=== PATIENT | female | born 1980 | race Caucasian/White ===

== ENCOUNTER → 2020-07-09 16:01 | Outpatient (CLI) | payer OTHER, SELFPAY ==
--- NOTE | ~2020-07-09 | XR_ITS ---
XR lumbar spine 2-3V DATE: 07/09/2020 16:22 INDICATION: Low back pain TECHNIQUE: Standing AP, lateral and coned lateral lumbosacral views COMPARISON: None FINDINGS: There is mild dextroscoliosis of the lumbar spine. No fracture or bone destruction or spondylolisthesis. The included lower thoracic and lumbar pedicles are intact. There is moderate degenerative disc disease at L1-2; the remaining lumbar and lumbosacral interspaces are well preserved. The sacroiliac joints are unremarkable. IMPRESSION: Mild dextro scoliosis Moderate degenerative disc disease at L1-2 Reviewed, dictated and finalized at location A.
== END ==
PROVIDERS: PCP Internal Medicine; Visit Provider Internal Medicine
DX: M51.36 Other intervertebral disc degeneration, lumbar region (principal)
CPT/HCPCS: 72100

== ENCOUNTER → 2020-10-15 14:25 | Outpatient (CLI) | payer OTHER, SELFPAY ==
--- NOTE | ~2020-10-15 | MR_ITS ---
EXAMINATION: MR lumbar spine wo con DATE: 10/15/2020 15:02 INDICATION: Low back pain. TECHNIQUE: Magnetic resonance imaging (MRI) of the lumbar spine was performed without intravenous con trast. Sequences included sagittal T2-weighted FSE, sagittal T2-weighted FS FSE, sagittal T1-weighted FSE, and axial T2-weighted FSE. COMPARISON: Lumbar spine radiographs 07/09/2020 FINDINGS: There is 6 degrees dextrocurvature of lumbar spine. There is mild chronic anterior wedging of L1 vertebral body. There are Schmorl's nodes from L1-L2 through L3-L4. There is a hemangioma in L1 vertebral body. There is mildly decreased disc height at L1-L2. The distal spinal cord signal intens ity is normal. The conus medullaris is at L1. The following disc levels are specifically discussed: L1-L2: There is a right central extrusion. There is no facet joint osteoarthritis. There is no neural foraminal stenosis. There is mild central canal stenosis. L2-L3: The disc does not extend beyond the endplate margin. There is mild right facet joint osteoarth ritis. There is no neural foraminal stenosis. There is no central canal stenosis. L3-L4: The disc does not extend beyond the endplate margin. There is mild right facet joint osteoarth ritis. There is no neural foraminal stenosis. There is no central canal stenosis. L4-L5: The disc is mildly bulging. There is no facet joint osteoarthritis. There is mild left neural foraminal stenosis. There is mild central canal stenosis. L5-S1: The disc is bulging and has an annular fissure. There is mild right facet joint osteoarthritis . There is mild right neural foraminal stenosis. There is mild central canal stenosis. IMPRESSION: 1. Mild lumbar spondylosis. Reviewed, dictated and finalized at location B. WORK CARPENTER IMPRESSION: 1. Mild lumbar spondylosis.
== END ==
PROVIDERS: PCP Internal Medicine; Visit Provider Internal Medicine
DX: M47.896 Other spondylosis, lumbar region (principal)
CPT/HCPCS: 72148

== ENCOUNTER → 2021-10-22 08:49 | Outpatient (CLI) | payer OTHER, SELFPAY ==
--- NOTE | ~2021-10-22 | CT_ITS ---
EXAMINATION: CT soft tissue neck w con DATE: 10/22/2021 09:34 INDICATION: Left neck lump. TECHNIQUE: Computed tomography (CT) of the neck was performed with 75 mL Omnipaque-350 intravenous co ntrast. Automated exposure control and iterative reconstruction technique were employed. The dose-casi gth product was 385.66 mGy-cm. COMPARISON: None FINDINGS: There is mild scarring at the lung apices. There are no pathologically enlarged lymph nodes . There is no visible plaque in the proximal internal carotid arteries. The paranasal sinuses are celestina ar. The mastoid air cells are normal. There is mild cervical spondylosis. IMPRESSION: 1. No abnormal mass or lymphadenopathy. Reviewed, dictated and finalized at location A. NICAL PRODUCT MANAGER
== END ==
PROVIDERS: Visit Provider Internal Medicine
DX: R22.1 Localized swelling, mass and lump, neck (principal)
CPT/HCPCS: 70491; Q9967

== ENCOUNTER → 2023-03-03 14:44 | Outpatient (CLI) | payer OTHER, SELFPAY ==
--- NOTE | ~2023-03-03 | MM_ITS ---
EXAMINATION: MM screening saeed BI w aurelia HISTORY: Screening mammogram TECHNIQUE: Craniocaudal and mediolateral oblique 3-D tomosynthesis images were obtained and synthetic 2-D images were generated. Bilateral rotated lateral craniocaudal views. CAD analysis was submitted and interpreted. COMPARISON: No prior mammogram is available for comparison at this institution. BREAST PARENCHYMAL COMPOSITION: There are scattered areas of fibroglandular density. FINDINGS: There is no evidence of suspicious mass, calcification, or architectural distortion to sugg est malignancy in either breast. There has been no suspicious interval change. IMPRESSION: 1. No mammographic evidence of malignancy. 2. Recommend routine screening mammography in one year. BI-RADS Category 1: Negative Reviewed, dictated and finalized at location A.
== END ==
PROVIDERS: PCP Obstetrics & Gynecology; Visit Provider Obstetrics & Gynecology
DX: Z12.31 Encounter for screening mammogram for malignant neoplasm of breast (principal)
CPT/HCPCS: 77063; 77067

== ENCOUNTER 2024-04-10 15:07 | Outpatient (CLI) | payer OTHER, SELFPAY ==
--- NOTE | ~2024-04-10 | MM_ITS ---
EXAMINATION: MM screening saeed BI w aurelia HISTORY: Screening TECHNIQUE: Craniocaudal and mediolateral oblique 3-D tomosynthesis images were obtained and synthetic 2-D images were generated. CAD analysis was submitted and interpreted. COMPARISON: 03/03/2023 BREAST PARENCHYMAL COMPOSITION: Not dense: There are scattered areas of fibroglandular density. FINDINGS: There is no evidence of suspicious mass, calcification, or architectural distortion to sugg est malignancy in either breast. There has been no suspicious interval change. IMPRESSION: 1. No mammographic evidence of malignancy. 2. Recommend routine screening mammography in one year. BI-RADS Category 1: Negative Reviewed, dictated and finalized at location B.
== END 2024-04-10 15:08 ==
LOC: MICIMG 15:07
PROVIDERS: PCP Obstetrics & Gynecology; Visit Provider Obstetrics & Gynecology
DX: Z12.31 Encounter for screening mammogram for malignant neoplasm of breast (principal)
CPT/HCPCS: 77063; 77067

== ENCOUNTER 2024-04-21 14:37 | Emergency (ER) | payer OTHER, SELFPAY ==
--- NOTE | 2024-04-21 14:40 | ED.URI ---
HPI - URI/Sore Throat General Chief Complaint: Upper Respiratory Infection Stated Complaint: Strep Test Time Seen by Provider: 04/21/24 14:39 Source: patient Mode of arrival: ambulatory Limitations: no limitations History of Present Illness HPI Narrative: Yarely is a 43-year-old female patient presenting to the clinic today with complaints of a scratchy dry itchy throat that started yesterday. Feels as though there is mucus in the back of her throat as she is having to clear her throat. States that both her kids just got over strep so she is concerned that she may have strep and would like testing today. Denies any fever, headache, or body aches, or abdominal discomfort MD elicited complaint: sore throat and nasal congestion Related Data Home Medications Medication Instructions Recorded Confirmed buspirone 15 mg tablet mg 04/21/24 fluoxetine 20 mg tablet mg 04/21/24 meloxicam 15 mg tablet mg 04/21/24 Allergies Allergy/AdvReac Type Severity Reaction Status Date / Time Penicillins Allergy Unknown HIVES Verified 03/09/18 12:14 HYDROCODONE BIT Allergy Unknown VOMITING Uncoded 03/09/18 12:14 Review of Systems Review of Systems: Pertinent positives per HPI. Patient denies any fever, chills, rash, headache, visual changes, dizziness, cough, shortness of breath, chest pain, palpitations, nausea, vomiting, diarrhea, constipation, abdominal pain, or any urinary issues. PMFSH Comments At the time of my signature, I reviewed and agree with the nursing past medical, surgical, social, and family history. There is no relevant family history pertinent to the patient complaint. Exam Narrative: General: Well-developed, well nourished, in no apparent distress Head: Normocephalic, atraumatic Eyes: Pupils equally round and reactive to light bilaterally, EOM intact, sclera and conjunctive clear, no discharge, lids normal Ears: TMs intact and clear, ear canals clear, no drainage, grossly hearing normal. Nose: Nares patent, clear discharge, no inflammation, no sinus tenderness. Mouth: Oral pharynx mildly red without lesions or masses, good dentition, MMM. Neck: Supple, trachea midline, no enlargement of anterior or posterior cervical nodes, no thyroid masses or goiter palpable. Cardio: Regular rate and rhythm, s1 and s2 normal, no murmur appreciated. Resp: Clear to auscultation bilaterally, no rhonchi, rales, wheezing or rubs Course Course Emergency Course: Portions of this record may have been created with voice recognition software. Level of Care: Express Care Visit Vital Signs Vital signs: Vital signs reviewed MDM - URI/Sore Throat MDM Narrative Medical decision making narrative: At the time of visit patient is resting comfortably on the exam table. Patient appears to be nontoxic. Labs: Strep test was negative in the clinic today. We will send for culture. Plan: I suspect patient has acute viral pharyngitis. We will send strep for culture. Supportive measures were discussed with the patient and they voiced understanding discharge instructions and agrees to treatment plan. Return precautions reviewed Differential Diagnosis Differential diagnosis: Likely upper respiratory infection, otitis media, sinusitis, viral infection, bronchitis, influenza, pharyngitis and other (COVID) Discharge Plan Discharge Clinical Impression: Pharyngitis Patient Disposition: Home, Self-Care Condition: Stable Instructions: Antibiotic Form, Pharyngitis (ED) Additional Instructions: Strep test was negative in the clinic today. We will send strep for culture if this comes back positive we will contact you in place you on antibiotics at that time. Increase fluids and stay well hydrated Tylenol/motrin for pain/fever Flonase and OTC antihistamines as directed Vicks vapor rub to open sinuses Sinus rinses for congestion Cepacol spray, cough drops, throat lozenges, warm tea with honey/lemon, gargle salt w
[2024-04-21 14:48] VITALS: BP 107/85; PULSE 99; RESP 16; TEMP 37.2; O2SAT 99
== END 2024-04-21 14:59 | disposition home or self-care (01) ==
PROVIDERS: Emergency Provider Nurse Practitioner Family; PCP Internal Medicine
DX: J02.9 Acute pharyngitis, unspecified (principal)
CPT/HCPCS: 87081; 87880; 99203; G0463

== ENCOUNTER 2024-12-25 14:44 | Emergency (ER) | payer OTHER, SELFPAY ==
--- NOTE | ~2024-12-25 | XR_ITS ---
EXAM: XR abdomen/kub 1V DATE: 12/25/2024 15:56 HISTORY: constipation, rectal stool ball . COMPARISON: None available. FINDINGS: Clear lung bases. The rectum is dilated to 7.9 cm by formed stool. Otherwise normal bowel gas pattern. No organomegaly. No abnormal abdominal calcification. IUD projecting over the pelvis. Re gional bones and soft tissues normal for age. IMPRESSION: Possible fecal impaction. Reviewed, dictated and finalized at location K. OP ADMINISTRATOR IMPRESSION: Possible fecal impaction.
[2024-12-25 14:47] VITALS: BP 119/80; PULSE 76; RESP 14; TEMP 36.4; O2SAT 99
--- NOTE | 2024-12-25 15:35 | ED_ITS ---
HPI - General Adult General Chief complaint: Unspecified <Rhona Rubio PA-C - Last Filed: 12/25/24 15:43> Stated complaint: think i have an impaction <Rhona Rubio PA-C - Last Filed: 12/25/24 15:43> Time Seen by Provider: 12/25/24 15:35 <Rhona Rubio PA-C - Last Filed: 12/25/24 15:43> Focused HPI: Patient is a 44 y/o female who presents to the ED with c/o constipation. Patient reports she has not had a bowel movement in the past couple of days. Has felt the urge to go and pressure in her rectum, but has been unable to pass any stool. Is on Mounjaro but denies frequent issues with constipation. Has tried miralax, warm water enema without improvement. Feels like there is a large stool ball present, but too big to push out. C/o pain to rectum. Denies abdominal pain, N/V, fevers, rectal bleeding. Has colonoscopy scheduled for February. GENERAL: Well-appearing, well-nourished, and in no acute distress. HEAD: Normocephalic, atraumatic. CHEST: Clear to auscultation. ?No respiratory distress. HEART: Regular rate and rhythm.? ABD: No significant tenderness throughout abdomen. NEURO: ?Alert and oriented x3. Patient screened in triage and initial orders placed.? ?Additional care and disposition to be based upon?diagnostic testing and treatment. <Rhona Rubio PA-C - Last Filed: 12/25/24 15:43> Source: patient <Rhona Rubio PA-C - Last Filed: 12/25/24 15:43> Mode of arrival: ambulatory <Rhona Rubio PA-C - Last Filed: 12/25/24 15:43> Limitations: no limitations <DORETHA Quinonez Last Filed: 12/25/24 15:43> History of Present Illness HPI narrative: I agree with the above HPI <Sae Dave MD - Last Filed: 12/25/24 22:07> Related Data Home medications: Home Medications ?Medication ?Instructions ?Recorded ?Confirmed ?Last Taken ?Type buspirone 15 mg tablet mg 04/21/24 Unknown History fluoxetine 20 mg tablet mg 04/21/24 Unknown History meloxicam 15 mg tablet mg 04/21/24 Unknown History <Rhona Rubio PA-C - Last Filed: 12/25/24 15:43> Allergies/adverse reactions: Allergies Allergy/AdvReac Type Severity Reaction Status Date / Time Penicillins Allergy Unknown HIVES Verified 12/25/24 14:52 HYDROCODONE BIT Allergy Unknown VOMITING Uncoded 12/25/24 14:52 <Rhona Rubio PA-C - Last Filed: 12/25/24 15:43> Review of Systems Review of Systems: All systems reviewed & are unremarkable except as noted in HPI and below <Sae Dave MD - Last Filed: 12/25/24 22:07> Exam Narrative: APPEARANCE: Well appearing, no pain, no distress, well-nourished. HEAD: normocephalic, atraumatic. EYES: PERRLA/EOMI, conjunctivae clear. NOSE: Normal no drainage EARS:TMS clear with good light reflex. THROAT: Pharynx clear, no exudate. NECK: Supple. No adenopathy, no masses. RESPIRATORY: Airway patent, respirations nonlabored. Clear to auscultation bilaterally, no rales, rhonchi, wheezing. CARDIOVASCULAR: Regular rate and rhythm without murmurs rubs or gallops. ABDOMINAL: Soft, nontender, nondistended, normal bowel sounds MUSCULOSKELETAL: Moves all extremities. Strength/ROM intact, No edema, No calf tenderness. NEURO: Alert. Cranial nerves II through XII intact. SKIN: Warm, dry. Normal Color <Sae Dave MD - Last Filed: 12/25/24 22:07> Course Vital Signs Vital signs: Vital Signs Temperature 97.5 F L 12/25/24 14:47 Pulse Rate 76 12/25/24 14:47 Respiratory Rate 14 12/25/24 14:47 Blood Pressure 119/80 12/25/24 14:47 Pulse Oximetry 99 12/25/24 14:47 Oxygen Delivery Room Air 12/25/24 14:47 Temperature 97.5 F L 12/25/24 14:47 Pulse Rate 89 12/25/24 20:19 Respiratory Rate 16 12/25/24 20:19 Blood Pressure 108/83 12/25/24 20:19 Pulse Oximetry 100 12/25/24 20:19 Oxygen Delivery Room Air 12/25/24 14:47 <Rhona Rubio PA-C - Last Filed: 12/25/24 15:43> Vital Signs Temperature 97.5 F L 12/25/24 14:47 Pulse Rate 76 12/25/24 14:47 Respiratory Rate 14 12/25/24 14:47 Blood Pressure 119/80 12/25/24 14:47 Pulse Oximetry 99 12/25/24 14:47 Oxygen Delivery Room Air 12/25/24 14:47 Temperature 97.5 F L 12/25/24 14:47 Pulse Rate 89 12/25/24 20:19 Respiratory Rate 16 12/25/24 20:19 Blood Pressure 108/83 12/25/24 20:19 Pulse Oximetry 100 12/25/24 20:19 Oxygen Delivery Room Air 12/25/24 14:47 <Sae Dave MD - Last Filed: 12/25/24 22:07> Procedures Rectal Disimpaction Rectal Disimpaction #1: Rectal Disimpaction Date: 12/25/24 <Sae Dave MD - Last Filed: 12/25/24 22:07> Rectal Disimpaction Time: 22:03 <Sae Dave MD - Last Filed: 12/25/24 22:07> Time out performed rectal disimpaction: Yes <Sae Dave MD - Last Filed: 12/25/24 22:07> Indication: fecal impaction <Sae Dave MD - Last Filed: 12/25/24 22:07> Procedural Sedation: No <Sae Dave MD - Last Filed: 12/25/24 22:07> Sedation/Analgesia: none <Sae Dave MD - Last Filed: 12/25/24 22:07> Technique: manual disimpaction with gloved finger <Sae Dave MD - Last Filed: 12/25/24 22:07> Result: unable to disimpact <Sae Dave MD - Last Filed: 12/25/24 22:07> Patient Tolerated Procedure: well and no complications <Sae Dave MD - Last Filed: 12/25/24 22:07> Complications: none <Sae Dave MD - Last Filed: 12/25/24 22:07> Medical Decision Making MDM Narrative Medical decision making narrative: MSE by SHARON in triage. <Rhona Rubio PA-C - Last Filed: 12/25/24 15:43> MSE by SHARON in triage. 44-year-old female present to the emergency department for evaluation for constipation has been going on for the last few days. Patient had been trying some MiraLax and attempted a glycerin suppository and enema without success. Patient was willing to attempt digital disimpaction with no significant results. Patient had an enema and did have some small results. Patient is still having some rectal pressure. Patient was willing to have a 2nd attempt at rectal disimpaction but the stool is too high and the rectum. Patient was advised to increase her MiraLax intake increase her glycerin suppository use and to have close follow-up with her primary care physician. All questions concerns were addressed patient was comfortable the plan was discharge and close follow-up. Patient was educated on reasons to return to the emergency department. <Sae Dave MD - Last Filed: 12/25/24 22:07> Differential Diagnosis Differential Diagnosis: Constipation, fecal impaction, constipation <Sae Dave MD - Last Filed: 12/25/24 22:07> Vital Signs Vital Signs: Vital Signs Temperature 97.5 F L 12/25/24 14:47 Pulse Rate 76 12/25/24 14:47 Respiratory Rate 14 12/25/24 14:47 Blood Pressure 119/80 12/25/24 14:47 Pulse Oximetry 99 12/25/24 14:47 Oxygen Delivery Room Air 12/25/24 14:47 Temperature 97.5 F L 12/25/24 14:47 Pulse Rate 89 12/25/24 20:19 Respiratory Rate 16 12/25/24 20:19 Blood Pressure 108/83 12/25/24 20:19 Pulse Oximetry 100 12/25/24 20:19 Oxygen Delivery Room Air 12/25/24 14:47 <Rhona Rubio PA-C - Last Filed: 12/25/24 15:43> Vital Signs Temperature 97.5 F L 12/25/24 14:47 Pulse Rate 76 12/25/24 14:47 Respiratory Rate 14 12/25/24 14:47 Blood Pressure 119/80 12/25/24 14:47 Pulse Oximetry 99 12/25/24 14:47 Oxygen Delivery Room Air 12/25/24 14:47 Temperature 97.5 F L 12/25/24 14:47 Pulse Rate 89 12/25/24 20:19 Respiratory Rate 16 12/25/24 20:19 Blood Pressure 108/83 12/25/24 20:19 Pulse Oximetry 100 12/25/24 20:19 Oxygen Delivery Room Air 12/25/24 14:47 <Sae Dave MD - Last Filed: 12/25/24 22:07> Imaging Data Radiologist's impression: Impressions Abdomen X-Ray 12/25/24 15:59 IMPRESSION: Possible fecal impaction. <Sae Dave MD - Last Filed: 12/25/24 22:07> Discharge Plan Discharge Clinical Impression: Fecal impaction of colon, Constipation <Rhona Rubio PA-C - Last Filed: 12/25/24 15:43> Patient Disposition: Home, Self-Care <Rhona Rubio PA-C - Last Filed: 12/25/24 15:43> Condition: Stable <Rhona Rubio PA-C - Last Filed: 12/25/24 15:43> Instructions: Antibiotic Form, Constipation (DC) <Rhona Rubio PA-C - Last Filed: 12/25/24 15:43> Additional Instructions: Glycerin suppositories as directed. Increase your MiraLax dosing and increased water intake. Have close follow-up with your primary care physician. If you have worsening symptoms then please call or return to the emergency department. <Rhona Rubio PA-C - Last Filed: 12/25/24 15:43> Patient Language: Macedonian <Rhona Rubio PA-C - Last Filed: 12/25/24 15:43> Prescriptions: No Action meloxicam 15 mg tablet fluoxetine 20 mg tablet buspirone 15 mg tablet <Rhona Rubio PA-C - Last Filed: 12/25/24 15:43> Follow-up/Referrals: Erinn,Robinson Zuleta MD [Primary Care Provider] - <Rhona Rubio PA-C - Last Filed: 12/25/24 15:43> Stand Alone Forms: Work/School Release IP <Rhona Rubio PA-C - Last Filed: 12/25/24 15:43>
--- OUTSIDE RECORDS SUMMARY | 2024-12-25 17:29 | XMS_ITS | Clinical Summary ---
Author Organization [facility] Address [address] [place] [address] Care Team Providers Care Sewer Connector Name Role Phone Robinson Plasencia MD Primary Care Provider [phone] Allergies Active Allergy Reactions Criticality Noted Date Comments Hydrocodone-Acetaminophen Nausea Only,Vomiting 10/16/2014 Penicillins Hives Medium 05/09/2007 Tape Itching 06/20/2020 Medications levonorgestrel (MIRENA) 20 MCG/24HR IUD 1 Intra Uterine Device by Intrauterine route once. Active Vit-Fe Fumarate-FA (CLASSIC ) 28-0.8 MG Tab Take 1 tablet by mouth daily. 06/09/20 21 Active Cholecalciferol (VITAMIN D) 125 MCG (5000 UT) CapIndications:Vit bridges D deficiency Take 1 capsule by mouth daily. 30 capsule 10/30/20 21 Active meloxicam (MOBIC) 15 MG tabletIndications: Primary osteoarthritis involving multiple joints Take 1 tablet (15 mg total) by mouth daily. 90 tablet 3 01/05/20 24 Active busPIRone (BUSPAR) 15 MG tabletIndications: Major depressive disorder, recurrent episode, moderate (CMS/HCC HHS/HCC) Take 1 tablet (15 mg total) by mouth 2 (two) times daily. 180 tablet 3 01/05/20 24 Active FLUoxetine (PROZAC) 20 MG tabletIndications: Major depressive disorder, recurrent episode, moderate (CMS/HCC HHS/HCC) Take 1 tablet (20 mg total) by mouth every morning. 90 tablet 3 01/05/20 24 Active meloxicam (MOBIC) 15 MG tabletIndications: Lumbar facet arthropathy Take 1 tablet (15 mg total) by mouth daily. 30 tablet 3 01/05/20 24 Active tirzepatide (ZEPBOUND) 2.5 MG/0.5ML injectionIndicatio ns:Obesity Inject 2.5 mg into the skin once a week. 2 mL 01/19/20 24 Active tretinoin (RETIN-A) 0.025 % creamIndications:A cne, unspecified acne type Apply topically nightly at bedtime. 45 g 3 03/13/20 24 Active ALPRAZolam (XANAX) 0.25 MG tabletIndications: Anxiety TAKE 1 TABLET BY MOUTH EVERY DAY NEEDED FOR SLEEP 30 tablet 05/30/20 24 Active cyclobenzaprine (FLEXERIL) 10 MG tabletIndications: Low back pain TAKE 1/2 TABLET(5 MG) BY MOUTH THREE TIMES DAILY NEEDED FOR MUSCLE SPASMS 30 tablet 10/11/20 24 Active Active Problems Problem Noted Date Diagnosed Date BRBPR (bright red blood per rectum) 05/26/2024 Diarrhea, unspecified type 05/26/2024 Family history of Crohn's disease 05/26/2024 Obstructive sleep apnea hypopnea, mild Vitamin D deficiency 10/30/2021 Palpitations 04/02/2021 Lumbar facet arthropathy 12/16/2020 Major depressive disorder, r ecurrent episode, moderate ([facility]) 11/18/2020 Melanoma of buttock ([facility]) 05/30/2020 Overview (09/18/2020): Dr. Reyna. Distinctive dermatology Anxiety 10/16/2014 Encounters Date Type Department Care Team Description 12/11/2024 MyChart Message Enc [facility] - [address] [place] [address] Lynn Scott NP Gallbladder 11/30/2024 MyChart Message Enc [facility] Medical [facility] Family & Internal Medicine - [address] [address] Robinson Plasencia MD Colonoscopy 11/30/2024 Orders Only [facility] - [facility] [address] [place] [phone] Brett Page MD 11/29/2024 MyChart Message Enc [facility] - [facility] [address] [place] [phone] Lynn Scott, AGUSTINA Colonoscopy from Last 3 Months Immunizations Name Administration Dates Next Due DT (Generic) 03/17/1988, 5,05/22/1983,1982 Dtp 01/12/1983 Fluzone 6 Months+ Quad (0.5 mL Prefilled Syringe) 08/11/2021,08/06/2018 Hib 1984 Influenza (Generic) 08/10/2016,07/17/2011,2009 Influenza Adult (Generic) 08/28/2023,,08/10/2016,2012 MMR 06/12/1993,12/09/1984 Opv 03/17/1988, 5,03/17/1983,1982 PFIZER COVID-19 (ORIGINAL FORMULATION, PURPLE CAP) mRNA, LNP-S, PF, 30 MCG/0.3 ML DOSE 10/24/2021 Td 06/12/1993 Td (Tenivac) preservative free 07/09/2006 Tdap (Boostrix) 02/06/2018 Family History Medical History Relation Comments Crohns Disease Brother Diabetes Brother Hyperlipidemia Brother Hypertension Father Prostate Cancer Maternal Grandfather Lung Cancer Maternal Grandmother Stroke Maternal Grandmother Irritable bowel syndrome Mother Diabetes Paternal Grandfather Heart Disease Paternal Grandfather Hypertension Paternal Grandfather Cancer Paternal Grandmother thyroid Diabetes Paternal Grandmother Relation Status Comments Brother Father Maternal Grandfather Maternal Grandmother Mother Paternal Grandfather Paternal Grandmother Social History Tobacco Use Types Packs/Day Years Used Date Smoking Tobacco: Never Smokeless Tobacco: Never Tobacco Cessation:Counseling Given: No Alcohol Use Standard Drinks/Week Comments Not Currently 0 (1 standard drink = 0.6 oz pur e alcohol) AUDIT-C Answer Date Recorded Frequency of Alcohol Consumption Never 04/12/2019 Average Number of Drinks Not on file 019 Frequency of Binge Drinking Not on file 03/2019 PHQ-2 Answer Date Recorded Patient Health Questionnaire-2 Score 0 05/26/2024 Education Answer Date Recorded What is the highest level of school you have completed or the highest degree you have received? 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; self-employed Not on file Not on file Not on file Last Filed Vital Signs Vital Sign Reading Time Taken Comments Blood Pressure 117/71 05/26/2024 10:00 AM CDT Pulse 80 05/26/2024 10:00 AM CDT Temperature 36.2 C (97.1 F) 05/26/2024 10:00 AM CDT Respiratory Rate 20 05/26/2024 10:00 AM CDT Oxygen Saturation 98% 05/26/2024 10:00 AM CDT Inhaled Oxygen Concentration - - Weight 86.2 kg (190 lb) 06/19/2024 3:03 PM CDT Height 177.8 cm (5' 10 ) 06/19/2024 3:03 PM CDT Body Mass Index 27.26 06/19/2024 3:03 PM CDT Plan of Treatment Upcoming Encounters Date Type Department Care Team (Latest Contact Info) Description 04/20/2025 8:32 AM CDT Hospital Encounter [facility] [address] [place] [address] Brett Page MD [address] [address] 04/20/2025 8:32 AM CDT - 04/20/2025 9:04 AM CDT Surgery [facility] [address] [place] [address] Brett Page MD [address] [place] [id number] COLONOSCOPY DIAGNOSTIC WITH/WITHOUT SPECIMEN BRUSH/WASH Scheduled Procedures Name Priority Associated Diagnoses Date/Ti me COLONOSCOPY DIAGNOSTIC WITH/WITHOUT SPECIMEN BRUSH/WASH Family history of Crohn's disease BRBPR (bright red blood per rectum) Diarrhea, unspecified type 04/20/2025 8:32 AM CDT Health Maintenance Due Date Last Done Comments Cervical Cancer Screening Pap Smear (Age 30 to 64) Every 3 Years 1982 Hepatitis B Vaccines (2 of 3 - 19+ 3-dose series) 01/16/2004 12/19/2003 Cervical Cancer Screening Pap with HPV Testing (Age 30 to 64) Every 5 Years 2012 Cervical Cancer Screening with HPV 2012 COVID-19 Vaccine ( season) 2024 10/24/2021, 11/21/2020, 11/11/2020 Influenza Adult (#1) 2024 08/28/2023, 08/11/2021, 08/15/2020, Additional history exists PHQ-2 (Physician [place]) 11/08/2024 05/26/2024 Annual Physical 01/05/2025 01/05/2024, 05/0 01/2023, 08/05/2022, Additional history exists Mammogram Screening 03/03/2025 03/03/2023 DTaP, Tdap and Td Vaccines (5 - Td or Tdap) 02/07/2028 02/06/2018, 05/21/2016, 08/20/2007, Additional history exists Meningococcal Vaccine Aged Out 12/14/2003 No mack tad eligible based on patient's age to complete this topic Hepatitis C Completed 05/30/2020 HPV Vaccines Aged Out No longer eligi ble based on patient's age to complete this topic Meningococcal B Vaccine Aged Out No l onger eligible based on patient's age to complete this topic Pneumococcal Vaccine: Pediatrics (0 to 5 Years) and At-Risk Patients (6 to 64 Years) Aged Out No longer eligible based on patient's age to complete this topic RSV Immunizations Under 20 Months Aged Out No longer eligible based on patient's age to complete this topic Procedures Procedure Name Priority Date/Time Associated Diagnosis Comments MAMMOGRAM GENERIC (SCAN ORDER) 03/03/2023 HEPATITIS C ANTIBODY Routine 05/30/2020 9:11 AM CDT from Last 3 Months or Most Recently Relevant to Health Maintenance Results * MAMMOGRAM GENERIC (03/03/2023) Anatomical Region Laterality Modality Other 03/03/2023 [facility] Scanned SCANNING Final Resu lt * HEPATITIS C ANTIBODY (05/30/2020 9:11 AM CDT) HEPATITIS C AB NON-REACT EH NON-REACT EH [facility] SIGNAL TO CUTOFF 0.01 <1.00 [facility] Comment: HCV antibody was non-reactive. There is no laboratory evidence of HCV infection. In most cases, no further action is required. However, if recent HCV exposure is suspected, a test for HCV RNA (test code 21047) is suggested. For additional information please refer to http://education.Cook123/faq/DIQ50p4 (This link is being provided for informational/ educational purposes only.) 05/30/2020 9:11 AM CDT 05/30/2020 9:14 AM CDT Narrative [facility] - 06/02/2020 3:05 PM CDT FASTING:YES FASTING: YES Resulting Agency Comment Performing Organization Information: Site ID: [id number] Name: [facility] Address: [address] [address] Director: Morgan Palafox D.O., MPH Robinson Plasencia MD LABORATORY Final Result [facility] [id number] [phone], from Last 3 Months or Most Recently Relevant to Health Maintenance Insurance Care Teams Sewer Connector Relationship Specialty Start Date End Date Robinson Plasencia MD [address] [place] [address] PCP - General 10/16/14
--- OUTSIDE RECORDS SUMMARY | 2024-12-25 17:30 | XMS_ITS | Encounter Summary ---
Author Organization [facility] Address [address] [place] [address] Care Team Providers Care Regional Driver Name Role Phone Robinson Plasencia MD Primary Care Provider [phone] Encounter Details Date Type Department Care Team (Late st Contact Info) Description 05/23/2020 Lab Requisition [facility] DermPath Lab [address] [place] [phone] Roseann Reyna DO [address] [facility] [address] [place] [address] Social History Tobacco Use Types Packs/Day Years Used Date Smoking Tobacco: Never Alcohol Use Standard Drinks/Week Comments Not Asked 0 (1 standard drink = 0.6 oz pur e alcohol) Sex and Gender Information Value Date Recorded Sex Assigned at Not on file Gender Identity Not on file Sexual Orientation Not on file documented as of this encounter Plan of Treatment Not on file documented as of this encounter Procedures Procedure Name Priority Date/Time Associated Diagnosis Comments DERMATOPATHOLOGY Routine 05/22/2020 12:0 0 AM CDT documented in this encounter Results * DERMATOPATHOLOGY (05/22/2020 12:00 AM CDT) Case Report Dermatopathology Report Case: [id number] Authorizing Provider: Roseann Reyna DO Collected: 05/22/2020 12:00 AM Ordering Location: [facility] DermPath Lab Received: 05/23/2020 09:17 AM Pathologist: Elliott Orellana MD Specimens: A) - Skin, scalp B) - Skin, left chest C) - Skin, left buttock 07/21/202 0 3:34 PM CDT DERMATOPATHOLOGY LABORATORY Final Diagnosis Specimen A. SKIN, scalp: FRAGMENTS OF EPIDERMIS (D23.9) HEALING SKIN CHANGES (L90.5) (see microscopic description) Specimen B. SKIN, left chest: LENTIGO SIMPLEX (L81.4) SUPERFICIAL AND DEEP PERIVASCULAR LYMPHOCYTIC INFILTRATE WITH EOSINOPHILS (T63.484A) (see microscopic description and comment) Specimen C. SKIN, left buttock: MALIGNANT MELANOMA,SUPERFICIA L SPREADING TYPE (C43.72) BRESLOW THICKNESS 0.3 MM, WAQAS LEVEL III PRESENT AT MARGIN (see microscopic description and synoptic report) 0 3:34 PM T DERMATOPATHOLOGY LABORATORY Clinical History A: Healing scar vs BCC B: LPLK vs bite R/O atypia C: Nevus R/O atypia 0 3:34 PM T DERMATOPATHOLOGY LABORATORY Gross Description Specimen A: Received is one formalin filled container labeled with the patient's name and designated scalp. The specimen consists of a shave biopsy measuring 7x5x1 mm. Jar 0. Specimen B: Received is one formalin filled container labeled with the patient's name and designated left chest. The specimen consists of a shave biopsy measuring 8x6x1 mm. Jar 0. Specimen C: Received is one formalin filled container labeled with the patient's name and designated left buttock. The specimen consists of a shave biopsy measuring 6x5x1 mm. Jar 0. 0 3:34 PM CDT DERMATOPATHOLOGY LABORATORY Microscopic Description Specimen A. SKIN, scalp: There are fragments of squamous epithelium without evidence of epithelial dysplasia or malignancy. There is minimal dermis present for evaluation. There is epidermal hyperplasia beneath which there are vascular proliferation, fibroblasts, and an edematous stroma. Additional deeper sections were obtained and reviewed. Specimen B. SKIN, left chest: There is orthokeratosis. There is increased pigmentation along the basal layer of the epidermis, especially at the base of the elongated rete ridges. A mildly increased number of melanocytes, highlighted by MART-1/Melan-A immunohistochemical staining, is seen along the basal layer. There is also a superficial a perivascular and interstitial infiltrate of lymphocytes with eosinophils. COMMENT: These histological findings are consistent with the clinical impression of an arthropod bite reaction. Specimen C. SKIN, left buttock: There is a proliferation melanocytes distributed in an irregular pattern singly and in nests at all levels of the epidermis, which are highlighted on MART-1/Melan A. In the dermis there are irregular nests and single scattered melanocytes. The melanocytes are large and have huang cytoplasm. There is a lymphohistiocytic infiltrate within the dermis. This lesion is present at the margin of the specimen. 0 3:34 PM CDT DERMATOPATHOLOGY LABORATORY Disclaimer An external and internal positive and negative controls are appropriate for the histochemical, immunohistochemical and immunofluorescence stain(s) in this case (if any), except where stated explicitly. The performance characteristics of the stain(s) cited in this report were developed and its performance characteristic determined by the Dermatopathology Laboratory at [facility], directed by Dr. Randall Orellana. These tests need not be, and therefore are not, approved by the [place] Food and Drug Administration. The tests are used for clinical purposes. Billing Codes Specimen Charges Stain Charges 49678 30912 67058 1 1 1 [id number] 25089 1 1 0 3:34 PM CDT DERMATOPATHOLOGY LABORATORY Embedded Images 0 3:34 PM CDT DERMATOPATHOLOGY LABORATORY Synoptic Report MELANOMA OF THE SKIN: Biopsy (Skin.Melanoma - C) 8th Edition - Protocol posted: 07/05/2019 SPECIMEN Procedure: Biopsy, shave Specimen Laterality: Left TUMOR Tumor Site: Skin of trunk: left buttock Histologic Type: Superficial spreading melanoma (low-cumulative sun damage (CSD) melanoma) Maximum Tumor (Breslow) Thickness (Millimeters): At least mm : 0.3 Ulceration: Not identified Anatomic (Waqas) Level: At least level: III Mitotic Rate: None identified Microsatellite(s): Not identified Lymphovascular Invasion: Not identified Neurotropism: Not identified Tumor-Infiltrating Lymphocytes: Present, brisk Tumor Regression: Present MARGINS: Peripheral Margins: Negative for invasive melanoma Status of Melanoma in situ at Peripheral Margins: Melanoma in situ present at margin Location: one lateral margin Deep Margin: Negative for invasive melanoma PATHOLOGIC STAGE CLASSIFICATION (pTNM, AJCC 8th Edition): Primary Tumor (pT): pT1a Comment(s) Comment(s): This case was also reviewed by Dr. Annette Bhagat who agrees. 0 3:34 PM CDT DERMATOPATHOLOGY LABORATORY Pathology/Cytology TISSUE SPECIMEN FROM SKIN / Unknown 05/22/2020 05/23/2020 9:17 AM CDT Miscellaneous samples (specimen) TISSUE SPECIMEN FROM SKIN / Unknown 05/22/2020 05/23/2020 9:17 AM CDT Miscellaneous samples (specimen) TISSUE SPECIMEN FROM SKIN / Unknown 05/22/2020 05/23/2020 9:17 AM CDT Roseann Reyna DO LAB - PATHOLOGY/C YTOLOGY ORDERABLES DERMATOPATHOLOGY LABORATORY [facility] - Department of Dermatology Web Production Manager [place]/[address] [phone] documented in this encounter Visit Diagnoses Not on filedocumented in this encounter Care Teams Regional Driver Relationship Specialty Start Date End Date Robinson Plasencia MD PCP - General 01/10/16 documented as of this encounter
--- OUTSIDE RECORDS SUMMARY | 2024-12-25 17:30 | XMS_ITS | Encounter Summary ---
Author Organization [facility] Address [address] [facility] [place] [address] Care Team Providers Care Tipple Boss Name Role Phone Robinson Plasencia MD Primary Care Provider [phone] Encounter Details Date Type Department Care Team (Late st Contact Info) Description 12/19/2020 Lab Requisition [facility] Care DermPath Lab [address] [facility] [place] [phone] Gloria Hernandez MD [address] [facility] [address] [place] [address] Social History Tobacco Use Types Packs/Day Years Used Date Smoking Tobacco: Never Smokeless Tobacco: Never Alcohol Use Standard Drinks/Week Comments Yes 0 (1 standard drink = 0.6 oz pur e alcohol) AUDIT-C Answer Date Recorded Q1: How often do you have a drink containing alc ohol? Monthly or less 06/03/2020 Average Number of Drinks Not on file 020 Frequency of Binge Drinking Not on file 05/09 Sex and Gender Information Value Date Recorded Sex Assigned at Not on file Gender Identity Not on file Sexual Orientation Not on file documented as of this encounter Plan of Treatment Not on file documented as of this encounter Procedures Procedure Name Priority Date/Time Associated Diagnosis Comments DERMATOPATHOLOGY Routine 12/18/2020 12:0 0 AM CARTON MAKING MACHINE OPERATOR documented in this encounter Results * DERMATOPATHOLOGY (12/18/2020 12:00 AM CARTON MAKING MACHINE OPERATOR) Case Report Dermatopathology Report Case: [id number] Authorizing Provider: Gloria Hernandez MD Collected: 12/18/2020 12:00 AM Ordering Location: [facility] DermPath Lab Received: 12/19/2020 09:01 AM Pathologist: Annette Bhagat MD Specimens: A) - Skin, left superior breast B) - Skin, left lateral breast C) - Skin, left inferior breast 4:30 PM [facility] DERMATOPATHOLOGY LABORATORY Final Diagnosis Specimen A. SKIN, left superior breast: LENTIGINOUS MELANOCYTIC NEVUS, COMPOUND TYPE, IRRITATED (COMPOUND MELANOCYTIC NEVUS WITH ARCHITECTURAL DISORDER) (D22.5) (see microscopic description) Specimen B. SKIN, left lateral breast: LENTIGINOUS MELANOCYTIC NEVUS, COMPOUND TYPE, IRRITATED (COMPOUND MELANOCYTIC NEVUS WITH ARCHITECTURAL DISORDER) (D22.5) (see microscopic description and comment) Specimen C. SKIN, left inferior breast: COMPOUND MELANOCYTIC NEVUS (D22.5) (see microscopic description) 4:30 PM [facility] DERMATOPATHOLOGY LABORATORY Clinical History A-B: R/O nevus. C: R/O nevus, irritated. 4:30 PM [facility] DERMATOPATHOLOGY LABORATORY Gross Description Specimen A: Received is one formalin filled container labeled with the patient's name and designated left superior breast. The specimen consists of a shave measuring [id number]. Jar 0. Specimen B: Received is one formalin filled container labeled with the patient's name and designated left lateral breast. The specimen consists of a shave measuring 7q2n4bx. Jar 0. Specimen C: Received is one formalin filled container labeled with the patient's name and designated left inferior breast. The specimen consists of a shave measuring 6q7y7qp. Jar 0. 4:30 PM [facility] DERMATOPATHOLOGY LABORATORY Microscopic Description Specimen A. SKIN, left superior breast: This is a compound nevus. There is melanin pigment in the stratum corneum. There is architectural disorder characterized by a lentiginous proliferation of melanocytes between irregular nests of cells along the dermal-epidermal junction, highlighted by MART-1/Melan-A immunohistochemical staining. There is underlying fibroplasia of the papillary dermis. The intradermal component is bland appearance and matures with depth. (Compound Waqas's Nevus or Compound Dysplastic Nevus) Specimen B. SKIN, left lateral breast: This is a compound nevus. There is melanin pigment in the stratum corneum. There is architectural disorder characterized by a lentiginous proliferation of melanocytes between irregular nests of cells along the dermal-epidermal junction, highlighted by MART-1/Melan-A immunohistochemical staining. There is underlying fibroplasia of the papillary dermis. The intradermal component is bland appearance and matures with depth. (Compound Waqas's Nevus or Compound Dysplastic Nevus) COMMENT: If this specimen is sampled from a larger lesion, these findings may not be traveling sales representative of the entire lesion. Clinicopathologic correlation is recommended. Specimen C. SKIN, left inferior breast: There are nests of melanocytes at the dermal-epidermal junction and within the dermis, highlighted by MART-1/Melan-A immunostain. 1 4:30 PM CARTON MAKING MACHINE OPERATOR DERMATOPATHOLOGY LABORATORY Disclaimer An external and internal positive and negative controls are appropriate for the histochemical, immunohistochemical and immunofluorescence stain(s) in this case (if any), except where stated explicitly. The performance characteristics of the stain(s) cited in this report were developed and its performance characteristic determined by the Dermatopathology Laboratory at [facility], directed by Dr. Randall Orellana. These tests need not be, and therefore are not, approved by the [place] Food and Drug Administration. The tests are used for clinical purposes. Billing Codes Specimen Charges Stain Charges 24830 99114 68891 1 1 1 [id number] 66199 22513 1 1 1 1 4:30 PM CARTON MAKING MACHINE OPERATOR DERMATOPATHOLOGY LABORATORY Embedded Images 1 4:30 PM CARTON MAKING MACHINE OPERATOR DERMATOPATHOLOGY LABORATORY Pathology/Cytology TISSUE SPECIMEN FROM SKIN / Unknown 12/18/2020 12/19/2020 9:01 AM CARTON MAKING MACHINE OPERATOR Miscellaneous samples (specimen) TISSUE SPECIMEN FROM SKIN / Unknown 12/18/2020 12/19/2020 9:01 AM CARTON MAKING MACHINE OPERATOR Miscellaneous samples (specimen) TISSUE SPECIMEN FROM SKIN / Unknown 12/18/2020 12/19/2020 9:01 AM CARTON MAKING MACHINE OPERATOR Gloria Hernandez MD LAB - PATHOLOGY/CYT OLOGY ORDERABLES DERMATOPATHOLOGY LABORATORY [facility] - Department of Dermatology [address] [phone] documented in this encounter Visit Diagnoses Not on filedocumented in this encounter Care Teams Tipple Boss Relationship Specialty Start Date End Date Robinson Plasencia MD PCP - General 01/10/16 documented as of this encounter
--- OUTSIDE RECORDS SUMMARY | 2024-12-25 17:30 | XMS_ITS | Clinical Summary ---
Author Organization [facility] [employer] Address [address] [place] [address] Care Team Providers Care Agricultural Sales Representative Name Role Phone Robinson Plasencia MD Primary Care Provider Source Comments [facility] [employer],non-owned Affiliates and Associated Physician Practices is amultiple site organization consisting of ambulatory clinics and hospital sitesin [place], [place], [place] and [place]. This disclosure is being madepursuant to the Care Everywhere program and may not contain all information available regarding this patient. Last updated 18.[facility] [employer] Allergies Active Allergy Reactions Criticality Noted Date Comments Adhesive Sensitivity Itching 06/20/2020 Hydrocodone-Acetaminophen Nausea and/or Vomiting,Vomiting 10/16/2014 Penicillins Skin Reactions Medium 02/12/2016 Medications * Be aware that medications may not be up to date on this document. Alwaysverify current medications with the patient. Medication Sig Dispensed Refills Start Date End Date Status FLUoxetine (PROZAC) 20 MG capsule TAKE 1 CAPSULE BY MOUTH ONCE DAILY. PATIENT MUST BE SEEN FOR FURTHER REFILLS. 05/16/2020 Active levonorgestrel (MIRENA) 20 MCG/24HR IUD 1 Intra Uterine Device by Intrauterine route once Active cetirizine (ZYRTEC ALLERGY) 10 MG gel capsule 10 mg 03/02/2017 Active traMADol (ULTRAM) 50 MG tablet Take 1 tablet by mouth every 6 hours as needed for Pain 12 tablet 06/20/2020 Active Additional Information Patient not taking.Reported on 07/10/2020 cyclobenzaprine (FLEXERIL) 10 MG tablet Take 10 mg by mouth as needed 07/09/2020 Active Active Problems Problem Noted Date Diagnosed Date Melanoma of buttock 06/03/2020 Cancer Staging:Clinical:Stage IA(cT1a, cN0, cM0) - Unsigned Pathologic stage from 02/26/2021:Stage Unknown(pT1a, pNX, cM0) - Signed by Hever Barnes MD on 02/26/2021 Family History Medical History Relation Name Comments Cancer - Breast Maternal Aunt Allergy (Severe) Neg Hx CVA Neg Hx Cancer Neg Hx Cancer - Skin, Melanoma Neg Hx Cancer - Skin, Non Melanoma Neg Hx Eczema Neg Hx Hemophilia Neg Hx Psoriasis Neg Hx Rashes/Skin Problems Neg Hx Relation Name Status Comments Maternal Aunt Social History Tobacco Use Types Packs/Day Years [...] on file Sexual Orientation Not on file Last Filed Vital Signs Vital Sign Reading Time Taken Comments Blood Pressure 112/76 07/10/2020 10:07 AM CDT Pulse 77 07/10/2020 10:07 AM CDT Temperature 36.4 C (97.5 F) 07/10/2020 10:07 AM CDT Respiratory Rate 16 06/20/2020 8:10 AM CDT Oxygen Saturation 100% 07/10/2020 10:07 AM CDT Inhaled Oxygen Concentration - - Weight 81.3 kg (179 lb 3.2 oz) 07/10/2020 10:07 AM CDT Height 177.8 cm (5' 10 ) 06/20/2020 6:54 AM CDT Body Mass Index 25.71 06/20/2020 6:54 AM CDT Plan of Treatment Health Maintenance Due Date Last Done Comments LIPID TESTING 1982 PAP SMEAR 1982 HIV SCREENING 1997 HEPATITIS C SCREENING 11/04/2000 DTAP/TDAP/TD VACCINES (1 - Tdap) 2001 HEPATITIS B VACCINE (1 of 3 - 19+ 3-dose series) 2001 COVID-19 VACCINE (2 - season) 2024 10/24/2021 INFLUENZA VACCINE (#1) 2024 3, 08/11/2021, 08/06/2018, Additional history exists DEPRESSION SCREENING 11/08/2024 MAMMOGRAM 03/03/2025 03/03/2023 ZOSTER VACCINE (1 of 2) 2032 HIB VACCINE Aged Out No longer eligi ble based on patient's age to complete this topic HPV VACCINE Aged Out No longer eligi ble based on patient's age to complete this topic MENINGOCOCCAL (Group B) VACCINE Aged Out No longer eligible based on patient's age to complete this topic MENINGOCOCCAL VACCINE Aged Out No mack tad eligible based on patient's age to complete this topic PNEUMOCOCCAL VACCINE Aged Out No long er eligible based on patient's age to complete this topic Care Teams Agricultural Sales Representative Relationship Specialty Start Date End Date Robinson Plasencia MD PCP - General 01/10/16
--- OUTSIDE RECORDS SUMMARY | 2024-12-25 17:30 | XMS_ITS | Clinical Summary ---
Author Organization [facility] Address [address] [place] [id number] Care Team Providers Care Communications Manager Name Role Phone Robinson Plasencia MD Primary Care Provider [phone] Allergies Active Allergy Reactions Criticality Noted Date Comments Adhesive Unknown 03/12/2021 Penicillins Hives,Rash Medium 05/09/2007 Medications ARIPiprazole (ABILIFY) 5 mg tablet Take 5 mg by mouth daily Active biotin 1 mg tablet Take 1,000 mcg by mouth daily Active levocetirizine (XYZAL) 5 mg tablet Take 5 mg by mouth every evening Active meloxicam (MOBIC) 15 mg tablet Take 15 mg by mouth daily 01/17/2021 Active ALPRAZolam (XANAX) 0.25 mg tablet Take 0.25 mg by mouth daily as needed 01/29/2021 Active desvenlafaxine succinate (PRISTIQ) 50 mg 24 hr tablet Take 50 mg by mouth daily Active Active Problems Problem Noted Date Diagnosed Date Encounter for screening for malignant neoplasm o f colon 12/07/2024 30 weeks gestation of 03/18/2016 Overview (02/10/2017): 30 weeks gestation of Patent foramen ovale 08/09/2015 Overview (02/12/2017): PFO (patent foramen ovale) Palpitations 08/09/2015 Overview (02/12/2017): Palpitations Chronic fatigue syndrome 08/09/2015 Overview (02/12/2017): Chronic fatigue Shortness of breath 08/09/2015 Overview (02/12/2017): SOB (shortness of breath) Encounters Date Type Department Care Team Description 12/05/[address] [facility] Gastroenterology at [address] [address] Jase Randall MD from Last 3 Months Surgical History Surgery Date Site/Laterality Comments MELANOMA RESECTION Medical History Medical History Date Comments Heart murmur PFO (patent foramen ovale) Cancer (CMS/HCC) (HCC) Melanoma Anxiety Depression Family History Medical History Relation Name Comments Crohn's disease Brother 1 Diabetes Brother 1 Diabetes mellit us; Diabetes Brother 2 Hyperlipidemia Father Hyperlipidemi a; Hypertension Father Hypertension; Stroke Maternal Grandmother Other Mother Alive and well; Diabetes Paternal Grandfather Diabetes Paternal Grandmother Relation Name Status Comments Brother 1 Alive Brother 2 Alive Father Alive Maternal Grandmother Mother Alive Paternal Grandfather Paternal Grandmother Social History Tobacco Use Types Packs/Day Years Used Date Smoking Tobacco: Never Smokeless Tobacco: Never Alcohol Use Standard Drinks/Week Comments Yes 0 (1 standard drink = 0.6 oz pur e alcohol) Comments No Sex and Gender Information Value Date Recorded Sex Assigned at Not on file Legal Sex Female 3:47 AM KLYSTROM TUBE TESTER Gender Identity Not on file Sexual Orientation Not on file Obstetrics History Last Filed Vital Signs Vital Sign Reading Time Taken Comments Blood Pressure 116/75 11/02/2021 5:56 PM KLYSTROM TUBE TESTER Pulse 99 11/02/2021 5:56 PM KLYSTROM TUBE TESTER Temperature 36.7 C (98 F) 11/02/2021 5:56 PM KLYSTROM TUBE TESTER Respiratory Rate 16 11/02/2021 5:56 PM KLYSTROM TUBE TESTER Oxygen Saturation 100% 11/02/2021 5:56 PM KLYSTROM TUBE TESTER Inhaled Oxygen Concentration - - Weight 88.5 kg (195 lb) 11/02/2021 5:56 PM KLYSTROM TUBE TESTER Height 177.8 cm (5' 10 ) 11/02/2021 5:56 PM KLYSTROM TUBE TESTER Body Mass Index 27.98 11/02/2021 5:56 PM KLYSTROM TUBE TESTER Plan of Treatment Upcoming Encounters Date Type Department Care Team (Late st Contact Info) Description 02/27/2025 8:30 AM CDT Hospital Encounter [facility] [address] [place] [address] [place] [address] [address] 02/27/2025 8:30 AM CDT - 02/27/2025 9:00 AM CDT Surgery [facility] [address] [place] [address] [place] [address] [id number] COLONOSCOPY Scheduled Procedures Name Priority Associated Diagnoses Date/Ti me COLONOSCOPY Encounter for screening for malignant neoplasm of colon 02/27/2025 8:30 AM CDT Insurance Care Teams Communications Manager Relationship Specialty Start Date End Date Robinson Plasencia MD PCP - General 03/18/16
--- OUTSIDE RECORDS SUMMARY | 2024-12-25 17:30 | XMS_ITS | Encounter Summary ---
Author Organization [facility] Address [facility] [place] [address] Care Team Providers Care Hot Packer Name Role Phone Robinson Plasencia MD Primary Care Provider [phone] Encounter Details Date Type Department Care Team (Late st Contact Info) Description 03/25/2023 MyChart Message Enc [facility] Family & Internal Medicine [facility] [address] [place] [address] Robinson Plasencia MD [facility] [place], [place] [id number] Bloodwork Social History Tobacco Use Types Packs/Day Years Used Date Smoking Tobacco: Never Smokeless Tobacco: Never Alcohol Use Standard Drinks/Week Comments Yes 0 (1 standard drink = 0.6 oz pur e alcohol) occasionally AUDIT-C Answer Date Recorded Frequency of Alcohol Consumption Never 04/12/2019 Average Number of Drinks Not on file 019 Frequency of Binge Drinking Not on file 03/2019 PHQ-2 Answer Date Recorded Patient Health Questionnaire-2 Score 0 03/10/2023 Education Answer Date Recorded What is the [...] file Not on file Not on file COVID-19 Exposure Response Date Recorded In the last 10 days, have yo u been in contact with someone who was confirmed or suspected to have Coronavirus/COVID-19? No / Unsure 03/10/2023 9:38 AM CDT documented as of this encounter Progress Notes * Robinson Plasencia MD - 04/06/2023 1:07 PM CDT I would recommend check ing with her Gyne about hormone levels as I typically do not prescribed testosterone for females, and would refer to Gyne for this testing and treatment. documented in this encounter Plan of Treatment Upcoming Encounters Date Type Department Care Team (Latest Contact Info) Description 04/20/2025 8:32 AM CDT Hospital Encounter [facility] [address] [place] [id number] Brett Page MD [address] [address] 04/20/2025 8:32 AM CDT - 04/20/2025 9:04 AM CDT Surgery [facility] [address] [place] [id number] Brett Page MD [address] [place] [id number] COLONOSCOPY DIAGNOSTIC WITH/WITHOUT SPECIMEN BRUSH/WASH Scheduled Procedures Name Priority Associated Diagnoses Date/Ti me COLONOSCOPY DIAGNOSTIC WITH/WITHOUT SPECIMEN BRUSH/WASH Family history of Crohn's disease BRBPR (bright red blood per rectum) Diarrhea, unspecified type 04/20/2025 8:32 AM CDT documented as of this encounter Visit Diagnoses Not on filedocumented in this encounter Additional Health Concerns Assessment Noted Time PHQ-9 Depression Total Score: 8 03/10/20 23 10:09 AM CDT documented as of this encounter Care Teams Hot Packer Relationship Specialty Start Date End Date Robinson Plasencia MD [address] [place] [address] PCP - General 10/16/14 documented as of this encounter
--- OUTSIDE RECORDS SUMMARY | 2024-12-25 17:30 | XMS_ITS | Referral Summary ---
Author Organization [facility] Address [address] [place] [address] Care Team Providers Care Toxicology Supervisor Name Role Phone Robinson Plasencia MD Primary Care Provider [phone] Encounters Date Type Department Care Team Description 12/05/2024 Telephone [facility] Gastroenterology at [address] [address] Jase Randall MD from Last 3 Months Allergies Active Allergy Reactions Criticality Noted Date [...] 08/09/2015 Overview (02/12/2017): SOB (shortness of breath) Social History Tobacco Use Types Packs/Day Years Used Date Smoking Tobacco: Never Smokeless Tobacco: Never Alcohol Use Standard Drinks/Week Comments Yes 0 (1 standard drink = 0.6 oz pur e alcohol) Comments No Sex and Gender Information Value Date Recorded Sex Assigned at Not on file Legal Sex Female 3:47 AM WEAVER WIRE LOOM Gender Identity Not on file Sexual Orientation Not on file Last Filed Vital Signs Vital Sign Reading Time Taken Comments Blood Pressure 116/75 11/02/2021 5:56 PM WEAVER WIRE LOOM Pulse 99 11/02/2021 5:56 PM WEAVER WIRE LOOM Temperature 36.7 C (98 F) 11/02/2021 5:56 PM WEAVER WIRE LOOM Respiratory Rate 16 11/02/2021 5:56 PM WEAVER WIRE LOOM Oxygen Saturation 100% 11/02/2021 5:56 PM WEAVER WIRE LOOM Inhaled Oxygen Concentration - - Weight 88.5 kg (195 lb) 11/02/2021 5:56 PM WEAVER WIRE LOOM Height 177.8 cm (5' 10 ) 11/02/2021 5:56 PM WEAVER WIRE LOOM Body Mass Index 27.98 11/02/2021 5:56 PM WEAVER WIRE LOOM Plan of Treatment Upcoming Encounters Date Type Department Care Team (Late st Contact Info) Description 02/27/2025 8:30 AM CDT Hospital Encounter [facility] [address] [place] [address] [place] [id number] [address] 02/27/2025 8:30 AM CDT - 02/27/2025 9:00 AM CDT Surgery [facility] [address] [place] [address] [place] [address] [place] [address] COLONOSCOPY Scheduled Procedures Name Priority Associated Diagnoses Date/Ti me COLONOSCOPY Encounter for screening for malignant neoplasm of colon 02/27/2025 8:30 AM CDT Insurance Care Teams Toxicology Supervisor Relationship Specialty Start Date End Date Robinson Plasencia MD PCP - General 03/18/16
--- OUTSIDE RECORDS SUMMARY | 2024-12-25 17:30 | XMS_ITS | Encounter Summary ---
Author Organization [facility] Address [address] [place] [address] Care Team Providers Care Electronic Scanner Operator Name Role Phone Robinson Plasencia MD Primary Care Provider Encounter Details Date Type Department Care Team (Late st Contact Info) Description 11/29/2024 MyChart Message Enc [facility] Multispecialty Care - [facility] [address] [place] [address] Lynn Scott NP [address] [facility] [address] [place] [address] Colonoscopy Social History Tobacco Use Types Packs/Day Years Used Date Smoking Tobacco: Never Smokeless Tobacco: Never Alcohol Use Standard Drinks/Week Comments Not Currently [...] file Not on file Not on file documented as of this encounter Plan of Treatment Upcoming Encounters Date Type Department Care Team (Latest Contact Info) Description 04/20/2025 8:32 AM CDT Hospital Encounter [facility] [address] [place] [phone] Brett Page MD [address] [facility] [address] [place] [address] 04/20/2025 8:32 AM CDT - 04/20/2025 9:04 AM CDT Surgery [facility] [address] [place] [phone] Brett Page MD 3 [facility] [address] [place] [address] COLONOSCOPY DIAGNOSTIC WITH/WITHOUT SPECIMEN BRUSH/WASH Scheduled Procedures [...] documented as of this encounter Care Teams Electronic Scanner Operator Relationship Specialty Start Date End Date Robinson Plasencia MD [address] [place] [address] PCP - General 10/16/14 documented as of this encounter
--- OUTSIDE RECORDS SUMMARY | 2024-12-25 17:30 | XMS_ITS | Patient Health Summary ---
Author Organization [facility] Address [address] [place] [address] Care Team Providers Care Digital Sales Planner Name Role Phone Robinson Plasencia MD Primary Care Provider [phone] Note from [facility],non-owned Affiliates and Associated Physician Practices is amultiple site organization consisting of ambulatory clinics and hospital sitesin [place], [place], [place] and [place]. This disclosure is being madepursuant to the Care Everywhere program and may not contain all information available regarding this patient. Last updated 18.[facility] Allergies * Adhesive Sensitivity(Itching) * Hydrocodone-Acetaminophen(Nausea and/or Vomiting,Vomiting) * Penicillins(Skin Reactions) -Medium Criticality Medications * Be aware that medications may not be up to date on this document. Alwaysverify current medications with the patient. * FLUoxetine (PROZAC) 20 MG capsule(Started 05/16/2020) TAKE 1 CAPSULE BY MOUTH ONCE DAILY. PATIENT MUST BE SEEN FOR FURTHER REFILLS. 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 Staging:Clinical:Stage IA(cT1a, cN0, cM0) - Unsigned Pathologic stage from 02/26/2021:Stage Unknown(pT1a, pNX, cM0) - Signed by Hever Barnes MD on 02/26/2021 Social History Tobacco Use Types Packs/Day Years [...] Mass Index 25.71 06/20/2020 6:54 AM CDT Procedures * DERMATOPATHOLOGY(Performed 12/18/2020) * PATHOLOGY TISSUE(Performed 06/20/2020) Performed for Melanoma of buttock (HCC) * EXCISION LESION TRUNK BACK/FLANK/BUTTOCK(Performed 06/20/2020) Performed for Melanoma of buttock (HCC) * HCG URINE QUALITATIVE - POCT (IP) INTERFACED(Performed 06/20/2020) * HCG URINE QUAL POCT NOTIFICATION(Performed 06/20/2020) Performed for Preop examination * DERMATOPATHOLOGY(Performed 05/22/2020) * DERMATOPATHOLOGY(Performed 02/12/2016) Results * DERMATOPATHOLOGY (12/18/2020 12:00 AM FUNERAL HOME ATTENDANT) Only the most recent of3 resultswithin the time period is included. Case Report Dermatopathology Report Case: [id number] Authorizing Provider: Gloria Hernandez MD Collected: 12/18/2020 12:00 AM Ordering Location: [facility] DermPath Lab Received: 12/19/2020 09:01 AM Pathologist: Annette Bhagat MD Specimens: A) - Skin, left superior breast B) - Skin, left lateral breast C) - Skin, left inferior breast 4:30 PM [facility] Final Diagnosis Specimen A. SKIN, [...] NEVUS (D22.5) (see microscopic description) 4:30 PM [facility] Clinical History A-B: R/O nevus. C: R/O nevus, irritated. 4:30 PM [facility] Gross Description Specimen A: Received is one formalin filled container labeled with the patient's name and designated left superior breast. The specimen consists of a shave measuring [id number]. Jar 0. Specimen B: Received is one formalin filled container labeled with the patient's name and designated left lateral breast. The specimen consists of a shave measuring [id number]. Jar 0. Specimen C: Received is one formalin filled container labeled with the patient's name and designated left inferior breast. The specimen consists of a shave measuring [id number]. Jar 0. 4:30 PM [facility] Microscopic Description Specimen A. SKIN, [...] larger lesion, these findings may not be billing customer service representative of the entire lesion. Clinicopathologic correlation is recommended. Specimen C. SKIN, left inferior breast: There are nests of melanocytes at the dermal-epidermal junction and within the dermis, highlighted by MART-1/Melan-A immunostain. 1 4:30 PM FUNERAL HOME ATTENDANT DERMATOPATHOLOGY LABORATORY Disclaimer An external and internal positive and negative controls are appropriate for the histochemical, immunohistochemical and immunofluorescence stain(s) in this case (if any), except where stated explicitly. The performance characteristics of the stain(s) cited in this report were developed and its performance characteristic determined by the Dermatopathology Laboratory at [facility], directed by Dr. Randall Orellana. These tests need not be, and therefore are not, approved by the [place] Food and Drug Administration. The tests are used for clinical purposes. Billing Codes Specimen Charges Stain Charges 55630 [id number] 68658 1 1 1 62174 87216 15522 1 1 1 1 4:30 PM FUNERAL HOME ATTENDANT DERMATOPATHOLOGY LABORATORY Embedded Images 1 4:30 PM FUNERAL HOME ATTENDANT DERMATOPATHOLOGY LABORATORY Pathology/Cytology TISSUE SPECIMEN FROM SKIN / Unknown 12/18/2020 12/19/2020 9:01 AM FUNERAL HOME ATTENDANT Miscellaneous samples (specimen) TISSUE SPECIMEN FROM SKIN / Unknown 12/18/2020 12/19/2020 9:01 AM FUNERAL HOME ATTENDANT Miscellaneous samples (specimen) TISSUE SPECIMEN FROM SKIN / Unknown 12/18/2020 12/19/2020 9:01 AM FUNERAL HOME ATTENDANT Gloria Hernandez MD LAB - PATHOLOGY/CYT OLOGY ORDERABLES DERMATOPATHOLOGY LABORATORY [facility] - Department of Dermatology [address], [address] [phone] * PATHOLOGY TISSUE (06/20/2020 7:46 AM CDT) Case Report Surgical Pathology Report Case: [id number] Authorizing Provider: Hever Barnes MD Collected: 06/20/2020 07:46 AM Ordering Location: [facility] Received: 06/20/2020 10:02 AM Pathologist: Kenzie Holbrook MD Specimens: A) - Skin, Left buttock melanoma, stitch at 12 o'clock B) - Margin, Inferior margin C) - Margin, Superior margin 06/24/2020 12:22 PM [facility] Final Diagnosis Skin, left buttock, wide excision (A): - Prior biopsy site changes, negative for residual invasive melanoma and melanoma in situ Skin, inferior margin, excision (B): - Negative for tumor Skin, superior margin, excision (C): - Negative for tumor 06/24/2020 12:22 PM [facility] Microscopic Description and Comment Microscopic examination substantiates the final diagnosis. 06/24/2020 12:22 PM T [facility] Clinical History The patient is a 39-year-old female with melanoma of left buttock. Biopsy revealed a 0.3 mm thick melanoma with no ulceration. Operative procedure: wide excision, left buttock melanoma. 06/24/2020 12:22 PM [facility] Gross Description The requisition and specimen label(s) are identified with the patient name, Roopa Vargas Received in formalin, specimen A , is a 2.4 x 1.8 x 1 cm fragment of oval light-escobar skin with underlying adipose tissue. The specimen is oriented with stitch at 12 o'clock position. There is a red-escobar central lesion measuring 0.2 x 0.2 cm and 1cm from 12 o'clock, 0.9 cm from 3 o'clock, 1.1 cm from 6 o'clock, 0.8 cm from 9 o'clock positions. The specimen is inked blue from 12-3-6 o'clock, green from 6-9-12 o'clock and black in the deep margin. Sectioning shows yellow-escobar cut surface with no distinct lesions. The specimen is entirely submitted as follows: A1 - margin at 12 o'clock; A2-A7 - sequential sections; A8 - margin at 6 o'clock. Received in formalin, specimen B , is an unoriented triangular portion of light-escobar and underlying soft tissue. The margins are inked black, and billing customer service representative section is submitted in cassette B1. Received in formalin, specimen C , is an unoriented fragment of light-escobar skin with underlying soft tissue measuring 1.2 x 1 x 1 cm. The specimen is inked black at the margins, and billing customer service representative section is submitted in cassette C1. AR/ 06/24/2020 12:22 PM [facility] PATHOLOGY LAB Disclaimer The performance characteristics of all immunohistochemical and indirect immunofluorescence stains (if any) cited in this report were determined by the Histopathology Laboratory of [facility]. Some of these tests were developed by our own laboratory and have not been cleared or approved by the US Food and Drug Administration. The FDA does not require this test to go through premarket FDA review. These tests are used for clinical purposes. They should not be regarded as investigational or for research. This laboratory is certified under the Clinical Laboratory Improvement Amendments (CLIA) as qualified to perform high complexity clinical laboratory testing. This case has been personally reviewed and interpreted by the attending (teaching) pathologist. 06/24/2020 12:22 PM [facility] Synoptic Report MELANOMA OF THE SKIN: Excision, Re-Excision (Skin.Melanoma - All Specimens) 8th Edition - Protocol posted: 07/05/2019 SPECIMEN Procedure: Excision Specimen Laterality: Left TUMOR Tumor Site: Skin of lower limb and hip: left buttocks Histologic Type: Superficial spreading melanoma (low-cumulative sun damage (CSD) melanoma) Maximum Tumor (Breslow) Thickness (Millimeters): 0.3 mm Macroscopic Satellite Nodule(s): Not identified Ulceration: Cannot be determined Anatomic (Waqas) Level: III (Melanoma fills and expands papillary dermis) Mitotic Rate: None identified Microsatellite(s): Not identified Lymphovascular Invasion: Not identified Neurotropism: Not identified Tumor-Infiltrating Lymphocytes: Present, brisk Tumor Regression: Present, involving less than 75% of lesion MARGINS: Peripheral Margins: Negative for invasive melanoma Distance of Invasive Melanoma from Closest Peripheral Margin (Millimeters): Greater than: 8 mm Status of Melanoma in situ at Peripheral Margins: Negative for melanoma in situ Distance of Melanoma in situ from Closest Peripheral Margin (Millimeters): Greater than: 8 mm Deep Margin: Negative for invasive melanoma Distance of Invasive Melanoma from Deep Margin (Millimeters): 10 mm LYMPH NODES: Regional Lymph Nodes: No lymph nodes submitted or found PATHOLOGIC STAGE CLASSIFICATION (pTNM, AJCC 8th Edition): : Classification assigned in this report includes information from a prior procedure: prior biopsy performed 05/22/2020 [facility] Dermatopathology Acc#[id number] Primary Tumor (pT): pT1a Regional Lymph Nodes (pN): pNX 06/24/2020 12:22 PM CDT [facility] Embedded Images 06/24/2020 12:22 PM CDT [facility] Biopsy, Excision TISSUE SPECIMEN FROM SKIN / Unknown 06/20/2020 7:46 AM CDT 06/20/2020 10:02 AM CDT Comment:Pre-op diagnosis: MELANOMA LEFT BUTTOCK Biopsy, Excision (Margin) 06/20/2020 7:53 AM CDT 06/20/2020 10:02 AM CDT Comment:Pre-op diagnosis: MELANOMA LEFT BUTTOCK Biopsy, Excision (Margin) 06/20/2020 7:58 AM CDT 06/20/2020 10:02 AM CDT Comment:Pre-op diagnosis: MELANOMA LEFT BUTTOCK Hever Barnes MD LAB - PATHOLOGY/CYTO LOGY ORDERABLES Performing Organization Address City/[facility]/ZIP Co de Phone Number [facility] [address] [place] [address] * HCG URINE QUALITATIVE - POCT (IP) INTERFACED (06/20/2020 6:39 AM CDT) HCG Qual Urine Negative Negative 06/20/2020 6:46 AM CDT [facility] Urine URINE / Unknown 06/20/2020 6 :39 AM CDT 06/20/2020 6:46 AM CDT Hever Barnes MD LAB - POINT OF CARE ORDERABLES [address] [address], [facility] [phone] * HCG URINE QUAL POCT NOTIFICATION (06/20/2020 6:18 AM CDT) Comment Notification Label Only - See Separate Report 06/20/2020 7:30 AM CDT [facility] Urine URINE / Unknown 06/20/2020 6 :18 AM CDT 06/20/2020 6:18 AM CDT Hever Barnes MD LAB - URINALYSIS ORD ERABLES [address] [address], [facility] [phone] Care Teams Digital Sales Planner Relationship Specialty Start Date End Date Robinson Plasencia MD PCP - General 01/10/16
--- OUTSIDE RECORDS SUMMARY | 2024-12-25 17:30 | XMS_ITS | Encounter Summary ---
Author Organization [facility] Address [address] [place] [address] Care Team Providers Care Manager Cable Name Role Phone Robinson Plasencia MD Primary Care Provider [phone] Encounter Details Date Type Department Care Team (Late st Contact Info) Description 12/11/2024 MyChart Message Enc [facility] Medical Group Multispecialty Care - [facility] [address] [place] [address] Lynn Scott NP [address] [facility] [address] [place] [address] Gallbladder Social History Tobacco Use Types Packs/Day Years [...] Description 04/20/2025 8:32 AM CDT Hospital Encounter [facility] [address] [place] [address] Brett Page MD 3 [facility] [address] [place] [address] 04/20/2025 8:32 AM CDT - 04/20/2025 9:04 AM CDT Surgery [facility] [address] [place] [address] Brett Page MD 3 [facility] [address] [place] [address] COLONOSCOPY DIAGNOSTIC WITH/WITHOUT SPECIMEN BRUSH/WASH Scheduled Procedures [...] documented as of this encounter Care Teams Manager Cable Relationship Specialty Start Date End Date Robinson Plasencia MD [address] [place] [address] PCP - General 10/16/14 documented as of this encounter
--- OUTSIDE RECORDS SUMMARY | 2024-12-25 17:30 | XMS_ITS | Referral Summary ---
Author Organization [facility] [employer] Address [address] [place] [address] Care Team Providers Care Communications Media Professor Name Role Phone Robinson Plasencia MD Primary Care Provider [phone] Source Comments [facility] [employer],non-owned Affiliates and Associated Physician Practices is amultiple site organization consisting of ambulatory clinics and hospital sitesin [place], [place], [place] and [place]. This disclosure is being madepursuant to the Care Everywhere program and may not contain all information available regarding this patient. Last updated 18.[facility] [employer] Allergies Active Allergy Reactions Criticality Noted Date [...] 06/20/2020 6:54 AM CDT Plan of Treatment Not on file Care Teams Communications Media Professor Relationship Specialty Start Date End Date Robinson Plasencia MD PCP - General 01/10/16
--- OUTSIDE RECORDS SUMMARY | 2024-12-25 17:30 | XMS_ITS | Encounter Summary ---
Author Organization [facility] Address [facility] [place] [address] Care Team Providers Care Faculty Administrator Name Role Phone Robinson Plasencia MD Primary Care Provider [phone] Encounter Details Date Type Department Care Team (Late st Contact Info) Description 05/31/20[address] Message Enc [facility] Medical Group Multispecialty Care - [facility] [address] [place] [address] Lynn Scott NP 3 [facility] [address] [place] [address] Medication hold Social History Tobacco Use Types Packs/Day Years [...] Description 04/20/2025 8:32 AM CDT Hospital Encounter [facility] [address] [place] [address] Brett Page MD 3 [facility] [address] [place] [address] 04/20/2025 8:32 AM CDT - 04/20/2025 9:04 AM CDT Surgery [facility] [address] [place] [address] Brett Page MD 3 [facility] [address] [place] [address] COLONOSCOPY DIAGNOSTIC WITH/WITHOUT SPECIMEN BRUSH/WASH Scheduled Procedures [...] documented as of this encounter Care Teams Faculty Administrator Relationship Specialty Start Date End Date Robinson Plasencia MD [address] [place] [address] PCP - General 10/16/14 documented as of this encounter
--- OUTSIDE RECORDS SUMMARY | 2024-12-25 17:30 | XMS_ITS | Encounter Summary ---
Author Organization [facility] Address [facility] [place] [address] Care Team Providers Care Hat Steamer Name Role Phone Robinson Plasencia MD Primary Care Provider [phone] Encounter Details Date Type Department Care Team (Late st Contact Info) Description 04/01/2023 MyChart Message Enc [facility] Medical [facility] Family & Internal Medicine [facility] [address] [place] [phone] Robinson Plasencia MD [facility] [place], [place] [id number] Medication adjustment Social History Tobacco Use Types Packs/Day Years [...] Notes * Robinson Plasencia MD - 04/06/2023 1:05 PM CDT She is currently on the maximum dosage of Desvenlafaxine. We can increase Abilify to 15mg daily. She should make a follow up appointment in approximately 4 weeks. * Arthur Chaparro DO - 04/02/2023 8:51 AM CDT This is not emergent, so would defer decision to PCP for consideration of change versus evaluation in office first. documented in this encounter Plan of Treatment Upcoming Encounters Date Type Department Care Team (Latest Contact Info) Description 04/20/2025 8:32 AM CDT Hospital Encounter [facility] [address] [place] [address] Brett Page MD [address] [place] [address] 04/20/2025 8:32 AM CDT - 04/20/2025 9:04 AM CDT Surgery [facility] [address] [place] [address] Brett Page MD [address] [place] [address] COLONOSCOPY DIAGNOSTIC WITH/WITHOUT SPECIMEN BRUSH/WASH Scheduled Procedures [...] documented as of this encounter Care Teams Hat Steamer Relationship Specialty Start Date End Date Robinson Plasencia MD [address] [place] [address] PCP - General 10/16/14 documented as of this encounter
[2024-12-25 20:19] VITALS: BP 108/83; PULSE 89; RESP 16; O2SAT 100
--- OUTSIDE RECORDS SUMMARY | 2024-12-25 20:29 | XMS_ITS | Referral Summary ---
Author Organization [facility] Address [address] [place] [address] Care Team Providers Care Refrigeration Technician Name Role Phone Robinson Plasencia MD Primary Care Provider [phone] Encounters Date Type Department Care Team Description 12/05/2024 Telephone [facility] Medical Group Gastroenterology at [address] [address] Jase Randall MD from Last [...] on file Legal Sex Female 3:47 AM MEDICAL INSURANCE CLERK Gender Identity Not on file Sexual Orientation Not on file Last Filed Vital Signs Vital Sign Reading Time Taken Comments Blood Pressure 116/75 11/02/2021 5:56 PM MEDICAL INSURANCE CLERK Pulse 99 11/02/2021 5:56 PM MEDICAL INSURANCE CLERK Temperature 36.7 C (98 F) 11/02/2021 5:56 PM MEDICAL INSURANCE CLERK Respiratory Rate 16 11/02/2021 5:56 PM MEDICAL INSURANCE CLERK Oxygen Saturation 100% 11/02/2021 5:56 PM MEDICAL INSURANCE CLERK Inhaled Oxygen Concentration - - Weight 88.5 kg (195 lb) 11/02/2021 5:56 PM MEDICAL INSURANCE CLERK Height 177.8 cm (5' 10 ) 11/02/2021 5:56 PM MEDICAL INSURANCE CLERK Body Mass Index 27.98 11/02/2021 5:56 PM MEDICAL INSURANCE CLERK Plan of Treatment Upcoming Encounters Date Type Department Care Team (Late st Contact Info) Description 02/27/2025 8:30 AM CDT Hospital Encounter [facility] [address] [place] [address] [place] [address] [address] 02/27/2025 8:30 AM CDT - 02/27/2025 9:00 AM CDT Surgery [facility] [address] [place] [address] [place] [address] [place] [address] COLONOSCOPY Scheduled Procedures Name Priority Associated Diagnoses Date/Ti me COLONOSCOPY Encounter for screening for malignant neoplasm of colon 02/27/2025 8:30 AM CDT Insurance Care Teams Refrigeration Technician Relationship Specialty Start Date End Date Robinson Plasencia MD PCP - General 03/18/16
--- OUTSIDE RECORDS SUMMARY | 2024-12-25 20:29 | XMS_ITS | Encounter Summary ---
Author Organization [facility] Address [facility] [place] [address] Care Team Providers Care Motor Tune Up Specialist Name Role Phone Robinson Plasencia MD Primary Care Provider [phone] Encounter Details Date Type Department Care Team (Late st Contact Info) Description 03/25/2023 MyChart Message Enc [facility] Medical Group Family & Internal Medicine [facility] [address] [place] [address] Robinson Plasencia MD [facility] [place], [place] [id number] Bloodwork Social History Tobacco Use Types Packs/Day [...] Description 04/20/2025 8:32 AM CDT Hospital Encounter [facility] [address] [place] [address] Brett Page MD [address] [address] 04/20/2025 8:32 AM CDT - 04/20/2025 9:04 AM CDT Surgery [facility] [address] [place] [address] Brett Page MD [address] [place] [address] COLONOSCOPY DIAGNOSTIC WITH/WITHOUT SPECIMEN BRUSH/WASH Scheduled Procedures [...] documented as of this encounter Care Teams Motor Tune Up Specialist Relationship Specialty Start Date End Date Robinson Plasencia MD [address] [place] [address] PCP - General 10/16/14 documented as of this encounter
--- OUTSIDE RECORDS SUMMARY | 2024-12-25 20:29 | XMS_ITS | Encounter Summary ---
Author Organization [facility] Address [address] [place] [address] Care Team Providers Care Domestic Travel Consultant Name Role Phone Robinson Plasencia MD Primary Care Provider [phone] Encounter Details Date Type Department Care Team (Late st Contact Info) Description 11/29/2024 MyChart Message Enc [facility] Medical Group Multispecialty Care - [facility] [address] [place] [address] Lynn Scott NP 3 [facility] [address] [place] [address] Colonoscopy Social History Tobacco Use Types Packs/Day [...] Description 04/20/2025 8:32 AM CDT Hospital Encounter [facility] [address] [place] [address] Brett Page MD 3 [facility] [address] [place] [address] 04/20/2025 8:32 AM CDT - 04/20/2025 9:04 AM CDT Surgery [facility] [address] [place] [address] Brett Page MD 3 [facility] [address] [place] [address] COLONOSCOPY DIAGNOSTIC WITH/WITHOUT SPECIMEN BRUSH/WASH Scheduled Procedures [...] documented as of this encounter Care Teams Domestic Travel Consultant Relationship Specialty Start Date End Date Robinson Plasencia MD [address] [place] [address] PCP - General 10/16/14 documented as of this encounter
--- OUTSIDE RECORDS SUMMARY | 2024-12-25 20:29 | XMS_ITS | Clinical Summary ---
Author Organization [facility] Address [address] [place] [address] Care Team Providers Care Senior Engineering Manager Name Role Phone Robinson Plasencia MD Primary Care Provider [phone] Allergies Active Allergy Reactions Criticality Noted Date [...] Major depressive disorder, r ecurrent episode, moderate ([facility]) 11/18/2020 Melanoma of buttock ([facility]) 05/30/2020 Overview (09/18/2020): Dr. Reyna. Distinctive dermatology Anxiety 10/16/2014 Encounters Date Type Department Care Team Description 12/11/2024 MyChart Message Enc [facility] Multispecialty Care - [address] [place] [address] Lynn Scott NP Gallbladder 11/30/2024 MyChart Message Enc [facility] Medical [facility] Family & Internal Medicine - [address] [address] Robinson Plasencia MD Colonoscopy 11/30/2024 Orders Only [facility] Multispecialty Care - [facility] [address] [place] [phone] Brett Page MD 11/29/2024 MyChart Message Enc [facility] Multispecialty Care - [facility] [address] [place] [phone] Lynn Scott, AGUSTINA Colonoscopy from Last 3 [...] Description 04/20/2025 8:32 AM CDT Hospital Encounter [facility] [address] [place] [address] Brett Page MD [address] [address] 04/20/2025 8:32 AM CDT - 04/20/2025 9:04 AM CDT Surgery [facility] [address] [place] [address] Brett Page MD [address] [place] [address] COLONOSCOPY DIAGNOSTIC WITH/WITHOUT SPECIMEN BRUSH/WASH Scheduled Procedures [...] 08/11/2021, 08/15/2020, Additional history exists PHQ-2 (Physician Eek) 11/08/2024 05/26/2024 Annual Physical 01/05/2025 01/05/2024, 05/0 [...] HEPATITIS C AB NON-REACT EH NON-REACT EH [email or web address] SIGNAL TO CUTOFF 0.01 <1.00 [email or web address] [facility] Comment: HCV antibody was non-reactive. There is no laboratory evidence of HCV infection. In most cases, no further action is required. However, if recent HCV exposure is suspected, a test for HCV RNA (test code 01892) is suggested. For additional information please refer to http://education.DueDil/faq/QOC61y7 (This link is being provided for informational/ educational purposes only.) 05/30/2020 9:11 AM CDT 05/30/2020 9:14 AM CDT Narrative [facility] - [facility] - 06/02/2020 3:05 PM CDT FASTING:YES FASTING: YES Resulting Agency Comment Performing Organization Information: Site ID: [id number] Name: [email or web address] Address: [address] [address] Director: Morgan Palafox D.O., MPH Robinson Plasencia MD LABORATORY Final Result [facility] [email or web address] [facility] [id number] [address] [phone], from Last 3 Months or Most Recently Relevant to Health Maintenance Insurance Care Teams Senior Engineering Manager Relationship Specialty Start Date End Date Robinson Plasencia MD [address] [place] [address] PCP - General 10/16/14
--- OUTSIDE RECORDS SUMMARY | 2024-12-25 20:29 | XMS_ITS | Clinical Summary ---
Author Organization [facility] [employer] Address [address] [place] [address] Care Team Providers Care Postal Service Mail Processor Name Role Phone Robinson Plasencia MD Primary Care Provider [phone] Source Comments [facility] [employer],non-owned Affiliates and Associated Physician Practices is amultiple site organization consisting of ambulatory clinics and hospital sitesin [place], [place], [place] and [place]. This disclosure is being madepursuant to the Care Everywhere program and may not contain all information available regarding this patient. Last updated 18.[facility] [employer] Allergies Active Allergy Reactions Criticality Noted Date [...] age to complete this topic Care Teams Postal Service Mail Processor Relationship Specialty Start Date End Date Robinson Plasencia MD PCP - General 01/10/16
--- OUTSIDE RECORDS SUMMARY | 2024-12-25 20:29 | XMS_ITS | Clinical Summary ---
Author Organization [facility] Address [address] [place] [address] Care Team Providers Care Order Checker Name Role Phone Robinson Plasencia MD Primary Care Provider [phone] Allergies Active Allergy Reactions Criticality Noted Date [...] Type Department Care Team Description 12/05/2024 Telephone [facility] Gastroenterology at [address] [address] Jase Randall MD from Last [...] on file Legal Sex Female 3:47 AM [facility] Gender Identity Not on file Sexual Orientation Not on file Obstetrics History Last Filed Vital Signs Vital Sign Reading Time Taken Comments Blood Pressure 116/75 11/02/2021 5:56 PM [facility] Pulse 99 11/02/2021 5:56 PM [facility] Temperature 36.7 C (98 F) 11/02/2021 5:56 PM [facility] Respiratory Rate 16 11/02/2021 5:56 PM [facility] Oxygen Saturation 100% 11/02/2021 5:56 PM [facility] Inhaled Oxygen Concentration - - Weight 88.5 kg (195 lb) 11/02/2021 5:56 PM [facility] Height 177.8 cm (5' 10 ) 11/02/2021 5:56 PM [facility] Body Mass Index 27.98 11/02/2021 5:56 PM [facility] Plan of Treatment Upcoming Encounters Date Type Department Care Team (Late st Contact Info) Description 02/27/2025 8:30 AM CDT Hospital Encounter [facility] [address] [place] [address] [place] [address] [address] 02/27/2025 8:30 AM CDT - 02/27/2025 9:00 AM CDT Surgery [facility] [address] [place] [address] [place] [address] [phone] COLONOSCOPY Scheduled Procedures Name Priority Associated Diagnoses Date/Ti me COLONOSCOPY Encounter for screening for malignant neoplasm of colon 02/27/2025 8:30 AM CDT Insurance Care Teams Order Checker Relationship Specialty Start Date End Date Robinson Plasencia MD PCP - General 03/18/16
--- OUTSIDE RECORDS SUMMARY | 2024-12-25 20:29 | XMS_ITS | Patient Health Summary ---
Author Organization [facility] Address [address] [place] [address] Care Team Providers Care Service Promoter Salesperson Name Role Phone Robinson Plasencia MD Primary Care Provider [phone] Note from [facility],non-owned Affiliates and Associated Physician Practices is amultiple site organization consisting of ambulatory clinics and hospital sitesin [place], [place], [place] and [place]. This disclosure is being madepursuant to the Care Everywhere program and may not contain all information available regarding this patient. Last updated 18.[facility] Allergies * Adhesive Sensitivity(Itching) * Hydrocodone-Acetaminophen(Nausea and/or [...] 02/12/2016) Results * DERMATOPATHOLOGY (12/18/2020 12:00 AM TECHNICAL OPERATIONS MANAGER) Only the most recent of3 resultswithin the time period is included. Case Report Dermatopathology Report Case: [id number] Authorizing Provider: Gloria Hernandez MD Collected: 12/18/2020 12:00 AM Ordering Location: [facility] DermPath Lab Received: 12/19/2020 09:01 AM Pathologist: Annette Bhagat MD Specimens: A) - Skin, left superior breast B) - Skin, left lateral breast C) - Skin, left inferior breast 4:30 PM [facility] DERMATOPATHOLOGY LABORATORY Final Diagnosis Specimen A. SKIN, [...] NEVUS (D22.5) (see microscopic description) 4:30 PM [facility] DERMATOPATHOLOGY LABORATORY Clinical History A-B: R/O nevus. C: R/O nevus, irritated. 4:30 PM [facility] DERMATOPATHOLOGY LABORATORY Gross Description Specimen A: Received is one formalin filled container labeled with the patient's name and designated left superior breast. The specimen consists of a shave measuring [id number]. Jar 0. Specimen B: Received is one formalin filled container labeled with the patient's name and designated left lateral breast. The specimen consists of a shave measuring 7u3x6uw. Jar 0. Specimen C: Received is one formalin filled container labeled with the patient's name and designated left inferior breast. The specimen consists of a shave measuring 9l9y8qi. Jar 0. 4:30 PM [facility] DERMATOPATHOLOGY LABORATORY Microscopic Description Specimen A. SKIN, [...] larger lesion, these findings may not be field service representative of the entire lesion. Clinicopathologic correlation is recommended. Specimen C. SKIN, left inferior breast: There are nests of melanocytes at the dermal-epidermal junction and within the dermis, highlighted by MART-1/Melan-A immunostain. 1 4:30 PM TECHNICAL OPERATIONS MANAGER DERMATOPATHOLOGY LABORATORY Disclaimer An external and internal positive and negative controls are appropriate for the histochemical, immunohistochemical and immunofluorescence stain(s) in this case (if any), except where stated explicitly. The performance characteristics of the stain(s) cited in this report were developed and its performance characteristic determined by the Dermatopathology Laboratory at [facility], directed by Dr. Randall Orellana. These tests need not be, and therefore are not, approved by the [place] Food and Drug Administration. The tests are used for clinical purposes. Billing Codes Specimen Charges Stain Charges 83312 [address] 38452 1 1 1 98448 84803 03091 1 1 1 1 4:30 PM TECHNICAL OPERATIONS MANAGER DERMATOPATHOLOGY LABORATORY Embedded Images 1 4:30 PM TECHNICAL OPERATIONS MANAGER DERMATOPATHOLOGY LABORATORY Pathology/Cytology TISSUE SPECIMEN FROM SKIN / Unknown 12/18/2020 12/19/2020 9:01 AM TECHNICAL OPERATIONS MANAGER Miscellaneous samples (specimen) TISSUE SPECIMEN FROM SKIN / Unknown 12/18/2020 12/19/2020 9:01 AM TECHNICAL OPERATIONS MANAGER Miscellaneous samples (specimen) TISSUE SPECIMEN FROM SKIN / Unknown 12/18/2020 12/19/2020 9:01 AM TECHNICAL OPERATIONS MANAGER Gloria Hernandez MD LAB - PATHOLOGY/CYT OLOGY ORDERABLES DERMATOPATHOLOGY LABORATORY [facility] - Department of Dermatology [address] [phone] * PATHOLOGY TISSUE (06/20/2020 7:46 AM CDT) Case Report Surgical Pathology Report Case: [id number] Authorizing Provider: Hever Barnes MD Collected: 06/20/2020 07:46 AM Ordering Location: [facility]TRA [facility] Received: 06/20/2020 10:02 AM Pathologist: Kenzie Holbrook MD Specimens: A) - Skin, Left buttock melanoma, stitch at 12 o'clock B) - Margin, Inferior margin C) - Margin, Superior margin 06/24/2020 12:22 PM T [facility] PATHOLOGY LAB Final Diagnosis Skin, left buttock, wide excision (A): - Prior biopsy site changes, negative for residual invasive melanoma and melanoma in situ Skin, inferior margin, excision (B): - Negative for tumor Skin, superior margin, excision (C): - Negative for tumor 06/24/2020 12:22 PM T [facility] PATHOLOGY LAB Microscopic Description and Comment Microscopic examination substantiates the final diagnosis. 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 Biopsy revealed a 0.3 mm thick melanoma with no ulceration. Operative procedure: wide excision, left buttock melanoma. 06/24/2020 12:22 PM T [facility] PATHOLOGY LAB Gross Description The requisition and [...] tissue. The margins are inked black, and field service representative section is submitted in cassette B1. Received in formalin, specimen C , is an unoriented fragment of light-escobar skin with underlying soft tissue measuring 1.2 x 1 x 1 cm. The specimen is inked black at the margins, and field service representative section is submitted in cassette C1. AR/ 06/24/2020 12:22 PM [facility] PATHOLOGY LAB Disclaimer The performance characteristics of all immunohistochemical and indirect immunofluorescence stains (if any) cited in this report were determined by the Histopathology Laboratory of [facility]. Some of these tests were developed by [...] the attending (teaching) pathologist. 06/24/2020 12:22 PM [facility] PATHOLOGY LAB Synoptic Report MELANOMA [...] a prior procedure: prior biopsy performed 05/22/2020 [facility] Dermatopathology Acc#[id number] Primary Tumor (pT): pT1a Regional Lymph Nodes (pN): pNX 06/24/2020 12:22 PM CDT [facility] PATHOLOGY LAB Embedded Images 06/24/2020 12:22 PM CDT [facility] PATH[facility] LAB Biopsy, Excision TISSUE SPECIMEN FROM [...] - PATHOLOGY/CYTO LOGY ORDERABLES Performing Organization Address City/[facility]/ZIP Co de Phone Number [facility] PATHOLOGY LAB [address] [place] [address] * HCG URINE QUALITATIVE - POCT (IP) INTERFACED (06/20/2020 6:39 AM CDT) HCG Qual Urine Negative Negative 06/20/2020 6:46 AM CDT [facility] Urine URINE / Unknown 06/20/2020 6 :39 AM CDT 06/20/2020 6:46 AM CDT Hever Barnes MD LAB - POINT OF CARE ORDERABLES [address] [address], [facility] [phone] * HCG URINE QUAL POCT NOTIFICATION (06/20/2020 6:18 AM CDT) Comment Notification Label Only - See Separate Report 06/20/2020 7:30 AM CDT [facility] Urine URINE / Unknown 06/20/2020 6 :18 AM CDT 06/20/2020 6:18 AM CDT Hever Barnes MD LAB - URINALYSIS ORD ERABLES [address] [address], [facility] [phone] Care Teams Service Promoter Salesperson Relationship Specialty Start Date End Date Robinson Plasencia MD PCP - General 01/10/16
--- OUTSIDE RECORDS SUMMARY | 2024-12-25 20:29 | XMS_ITS | Encounter Summary ---
Author Organization [facility] Address [facility] [place] [address] Care Team Providers Care Chemical Processing Technician Name Role Phone Robinson Plasencia MD Primary Care Provider [phone] Encounter Details Date Type Department Care Team (Late st Contact Info) Description 05/31/2024 MyCWDT Acquisitiont Message Enc [facility] Medical Group Multispecialty Care - [facility] [address] [place] [address] Lynn Scott NP [address] [facility] [address] [place] [address] Medication hold Social History Tobacco Use Types [...] Description 04/20/2025 8:32 AM CDT Hospital Encounter [facility] [address] [address] Brett Page MD 3 [facility] [address] [place] [address] 04/20/2025 8:32 AM CDT - 04/20/2025 9:04 AM CDT Surgery [facility] [address] [address] Brett Page MD 3 [facility] [address] [place] [address] COLONOSCOPY DIAGNOSTIC WITH/WITHOUT SPECIMEN BRUSH/WASH Scheduled Procedures [...] documented as of this encounter Care Teams Chemical Processing Technician Relationship Specialty Start Date End Date Robinson Plasencia MD [address] [place] [address] PCP - General 10/16/14 documented as of this encounter
--- OUTSIDE RECORDS SUMMARY | 2024-12-25 20:29 | XMS_ITS | Referral Summary ---
Author Organization [facility] [employer] Address [address] [place] [address] Care Team Providers Care Instrumentation Designer Name Role Phone Robinson Plasencia MD Primary Care Provider [phone] Source Comments [facility] [employer],non-owned Affiliates and Associated Physician Practices is amultiple site organization consisting of ambulatory clinics and hospital sitesin [place], [place], [place] and [place]. This disclosure is being madepursuant to the Care Everywhere program and may not contain all information available regarding this patient. Last updated 18.[facility] [employer] Allergies Active Allergy Reactions Criticality Noted Date [...] of Treatment Not on file Care Teams Instrumentation Designer Relationship Specialty Start Date End Date Robinson Plasencia MD PCP - General 01/10/16
--- OUTSIDE RECORDS SUMMARY | 2024-12-25 20:29 | XMS_ITS | Encounter Summary ---
Author Organization [facility] Address [address] [place] [address] Care Team Providers Care Shredder Tender Name Role Phone Robinson Plasencia MD Primary Care Provider [phone] Encounter Details Date Type Department Care Team (Late st Contact Info) Description 12/19/2020 Lab Requisition [facility] Care DermPath Lab [address] [facility] [address] [facility] [place] [phone] Gloria Hernandez MD [address] [facility] [address] [place] [address] Social History Tobacco Use Types Packs/Day Years [...] Comments DERMATOPATHOLOGY Routine 12/18/2020 12:0 0 AM FUEL OIL TRUCK DRIVER documented in this encounter Results * DERMATOPATHOLOGY (12/18/2020 12:00 AM FUEL OIL TRUCK DRIVER) Case Report Dermatopathology Report Case: [id number] Authorizing Provider: Gloria Hernandez MD Collected: 12/18/2020 12:00 AM Ordering Location: [facility] DermPath Lab Received: 12/19/2020 09:01 AM Pathologist: Annette Bhagat MD Specimens: A) - Skin, left superior breast B) - Skin, left lateral breast C) - Skin, left inferior breast 4:30 PM [facility] DERMATOPATHOLOGY LABORATORY Final Diagnosis Specimen A. [...] NEVUS (D22.5) (see microscopic description) 4:30 PM [facility] DERMATOPATHOLOGY LABORATORY Clinical History A-B: R/O nevus. C: R/O nevus, irritated. 4:30 PM [facility] DERMATOPATHOLOGY LABORATORY Gross Description Specimen A: Received is one formalin filled container labeled with the patient's name and designated left superior breast. The specimen consists of a shave measuring 9t1y7qe. Jar 0. Specimen B: Received is one formalin filled container labeled with the patient's name and designated left lateral breast. The specimen consists of a shave measuring 5e2n6lb. Jar 0. Specimen C: Received is one formalin filled container labeled with the patient's name and designated left inferior breast. The specimen consists of a shave measuring 2v9f7ry. Jar 0. 4:30 PM [facility] DERMATOPATHOLOGY LABORATORY Microscopic Description Specimen A. [...] larger lesion, these findings may not be procurement representative of the entire lesion. Clinicopathologic correlation is recommended. Specimen C. SKIN, left inferior breast: There are nests of melanocytes at the dermal-epidermal junction and within the dermis, highlighted by MART-1/Melan-A immunostain. 1 4:30 PM FUEL OIL TRUCK DRIVER DERMATOPATHOLOGY LABORATORY Disclaimer An external and internal positive and negative controls are appropriate for the histochemical, immunohistochemical and immunofluorescence stain(s) in this case (if any), except where stated explicitly. The performance characteristics of the stain(s) cited in this report were developed and its performance characteristic determined by the Dermatopathology Laboratory at [facility], directed by Dr. Randall Orellana. These tests need not be, and therefore are not, approved by the [place] Food and Drug Administration. The tests are used for clinical purposes. Billing Codes Specimen Charges Stain Charges 97306 66255 65671 1 1 1 53223 06975 58642 1 1 1 1 4:30 PM FUEL OIL TRUCK DRIVER DERMATOPATHOLOGY LABORATORY Embedded Images 1 4:30 PM FUEL OIL TRUCK DRIVER DERMATOPATHOLOGY LABORATORY Pathology/Cytology TISSUE SPECIMEN FROM SKIN / Unknown 12/18/2020 12/19/2020 9:01 AM FUEL OIL TRUCK DRIVER Miscellaneous samples (specimen) TISSUE SPECIMEN FROM SKIN / Unknown 12/18/2020 12/19/2020 9:01 AM FUEL OIL TRUCK DRIVER Miscellaneous samples (specimen) TISSUE SPECIMEN FROM SKIN / Unknown 12/18/2020 12/19/2020 9:01 AM FUEL OIL TRUCK DRIVER Gloria Hernandez MD LAB - PATHOLOGY/CYT OLOGY ORDERABLES DERMATOPATHOLOGY LABORATORY [facility] - Department of Dermatology [address] [phone] documented in this encounter Visit Diagnoses Not on filedocumented in this encounter Care Teams Shredder Tender Relationship Specialty Start Date End Date Robinson Plasencia MD PCP - General 01/10/16 documented as of this encounter
--- OUTSIDE RECORDS SUMMARY | 2024-12-25 20:29 | XMS_ITS | Encounter Summary ---
Author Organization [facility] Address [address] [place] [address] Care Team Providers Care Conductor Freight Name Role Phone Robinson Plasencia MD Primary Care Provider [phone] Encounter Details Date Type Department Care Team (Late st Contact Info) Description 05/23/2020 Lab Requisition [facility] DermPath Lab [address] [facility] [place] [address] Roseann Reyna DO [address] [facility] [address] [place] [address] Social History Tobacco Use Types Packs/Day Years [...] AM CDT) Case Report Dermatopathology Report Case: [id number] Authorizing Provider: Roseann Reyna DO Collected: 05/22/2020 12:00 AM Ordering Location: [facility] DermPath Lab Received: 05/23/2020 09:17 AM [...] characteristic determined by the Dermatopathology Laboratory at [facility], directed by Dr. Randall Orellana. These tests need not be, and therefore are not, approved by the [place] Food and Drug Administration. The tests are used for clinical purposes. Billing Codes Specimen Charges Stain Charges 72847 90444 03279 1 1 1 15110 32922 1 1 0 3:34 PM CDT DERMATOPATHOLOGY [...] LAB - PATHOLOGY/C YTOLOGY ORDERABLES DERMATOPATHOLOGY LABORATORY [facility] - Department of Dermatology Dependency Case Manager [place]/[address] [phone] documented in this encounter Visit Diagnoses Not on filedocumented in this encounter Care Teams Conductor Freight Relationship Specialty Start Date End Date Robinson Plasencia MD PCP - General 01/10/16 documented as of this encounter
--- OUTSIDE RECORDS SUMMARY | 2024-12-25 20:29 | XMS_ITS | Encounter Summary ---
Author Organization [facility] Address [facility] [place] [address] Care Team Providers Care Centerless Grinder Operator Name Role Phone Robinson Plasencia MD Primary Care Provider [phone] Encounter Details Date Type Department Care Team (Late st Contact Info) Description 04/01/2023 MyChart Message [facility] [address] [place] [phone] Robinson Plasencia MD [facility] [place], [place] [phone] Medication adjustment Social History Tobacco Use Types [...] Description 04/20/2025 8:32 AM CDT Hospital Encounter [facility] [address] [place] [address] Brett Page MD [address] [place] [address] 04/20/2025 8:32 AM CDT - 04/20/2025 9:04 AM CDT Surgery [facility] [address] [place] [address] Brett Page MD [address] [place] [address] COLONOSCOPY DIAGNOSTIC WITH/WITHOUT SPECIMEN BRUSH/WASH Scheduled Procedures [...] documented as of this encounter Care Teams Centerless Grinder Operator Relationship Specialty Start Date End Date Robinson Plasencia MD [address] [place] [address] PCP - General 10/16/14 documented as of this encounter
--- OUTSIDE RECORDS SUMMARY | 2024-12-25 20:29 | XMS_ITS | Encounter Summary ---
Author Organization [facility] Address [address] [place] [id number] Care Team Providers Care Vice President And Portfolio Manager Name Role Phone Robinson Plasencia MD Primary Care Provider [phone] Encounter Details Date Type Department Care Team (Late st Contact Info) Description 12/11/2024 MyChart Message Enc [facility] Multispecialty Care - [facility] [address] [place] [address] Lynn Scott NP [address] [facility] [address] [place] [address] Gallbladder Social History Tobacco Use Types Packs/Day [...] Description 04/20/2025 8:32 AM CDT Hospital Encounter [facility] [address] [place] [phone] Brett Page MD 3 [facility] [address] [place] [address] 04/20/2025 8:32 AM CDT - 04/20/2025 9:04 AM CDT Surgery [facility] [address] [place] [id number] Brett Page MD 3 [facility] [address] [place] [address] COLONOSCOPY DIAGNOSTIC WITH/WITHOUT SPECIMEN BRUSH/WASH Scheduled Procedures [...] documented as of this encounter Care Teams Vice President And Portfolio Manager Relationship Specialty Start Date End Date Robinson Plasencia MD [address] [place] [address] PCP - General 10/16/14 documented as of this encounter
--- NOTE | 2024-12-25 21:46 | PC.NURSE ---
Enema completed and pt. states she still feels like the stool ball is present. Dr. Dave notified and to bedside to update pt.
[2024-12-25 22:45] VITALS: BP 110/72; PULSE 85; RESP 16; O2SAT 98
== END 2024-12-25 22:53 | disposition home or self-care (01) ==
PROVIDERS: Emergency Provider Emergency Medicine; PCP Internal Medicine
DX: K56.41 Fecal impaction (principal)
CPT/HCPCS: 74018; 99283

== ENCOUNTER 2025-06-08 12:20 | Outpatient (CLI) | payer OTHER, SELFPAY ==
--- NOTE | ~2025-06-08 | MM_ITS ---
EXAMINATION: MM screening saeed BI w aurelia HISTORY: Screening TECHNIQUE: Craniocaudal and mediolateral oblique 3-D tomosynthesis images were obtained and synthetic 2-D images were generated. CAD analysis was submitted and interpreted. COMPARISON: Comparison to multiple prior studies sequentially, with oldest reviewed study dated 03/03. BREAST PARENCHYMAL COMPOSITION: Not dense: There are scattered areas of fibroglandular density. FINDINGS: There is no evidence of suspicious mass, calcification, or architectural distortion to sugg est malignancy in either breast. There has been no suspicious interval change. IMPRESSION: 1. No mammographic evidence of malignancy. 2. Recommend routine screening mammography in one year. BI-RADS Category 1: Negative Reviewed, dictated and finalized at location B.
== END 2025-06-08 12:21 | disposition home or self-care (01) ==
LOC: MICIMG 12:20
PROVIDERS: PCP Internal Medicine; Visit Provider Obstetrics & Gynecology
DX: Z12.31 Encounter for screening mammogram for malignant neoplasm of breast (principal)
CPT/HCPCS: 77063; 77067